=== PATIENT | female | born 1930 | race Caucasian/White ===

== ENCOUNTER → 2016-05-27 | Outpatient (CLI) | payer MEDICARE, OTHER ==
[~2016-05-27] MED LIST: ALBUTEROL2.5 MG/0.5 INH; ALBUTEROL2.5 MG/31 INH; ARTIFICIAL TEA1 EACH OPHTH; ARTIFICIAL TEAR15 ML OPHTH; ASPERCREME90 GM/TUBE TOP; ASPIRIN EC325 MG PO; ATIVAN 0.5MG0.5 MG PO; BREO ELLIPTA 11 EACH INH; BUTRANS1 EAC1 TOP; CALCIUM WITH V1 EAC1 PO; CALCIUM WITH V1 EAC2 PO; CENTRUM SILVER1 EAC1 PO; CENTRUM SILVER1 TAB PO; CITRACAL950 MG PO; COLACE100 MG PO; COLCHICINE0.6 MG PO; CORDARONE,PACE200 MG PO; COZAAR25 MG PO; DELTASONE20 M1 PO; ECOTRIN325 MG PO; ELOCON45 GM TOP; FISH OIL 1,0001 EACH PO; FISH OIL 1,2001 EAC2 PO; FLONASE 50 MCG/16 GM NOSE; FLORASTOR250 MG PO; FOLIC ACID 40400 MCG PO; GLUCOSAMINE &1 EAC1 PO; GLUCOSAMINE CH1 EAC1 PO; I-CAPS WITH LU1 EACH PO; KEFLEX500 MG PO; KLOR-CON M2020 MEQ PO; LASIX40 MG PO; LINEZOLID600 MG PO; LIPITOR40 MG PO; MAG-OX-400(241400 MG PO; METAMUCIL PACKE1 PKT PO; METOPROLOL TART25 MG PO; MILK OF MA400 MG/5 M PO; MIRALAX17 GM PO; NIFEREX-150) (150 MG PO; NORCO 10-325 T1 EACH PO; OCUVITE SOFTGE1 EACH PO; OXYGEN M-15 INH; PEPCID20 MG PO; PERCOCET 10-321 EACH PO; PHENERGAN WITH15 ML PO; PROBIOTIC DIGE1 EACH PO; PROMETH-CODEIN 65 ML PO; PROTONIX40 MG PO; REGLAN10 MG PO; REQUIP2 MG PO; ROBITUSSIN DM120 ML PO; SLOW-MAG (64 MG1 TAB PO; SPIRONOLACTONE25 MG PO; SYSTANE 0.3-0.1 EACH OPHTH; SYSTANE 0.3-0.440 ML OPHTH; TAZTIA XT120 MG PO; TEARGEN1 BOT OPHTH; TESSALON PERLE100 MG PO; THERA-VITE W/ B1 TAB PO; TYLENOL ARTHRI650 MG PO; TYLENOL EXTRA500 MG PO; TYLENOL325 MG PO; ULTRAM50 MG PO; VALIUM5 MG PO; VITAMIN D-32000 UNIT PO; Z-PAK250 MG PO; ZAROXOLYN2.5 MG PO; ZITHROMAX250 MG PO; ZOFRAN8 M1 PO; ZOFRAN8 MG PO; ZOLOFT50 MG PO; ZYRTEC10 MG PO; [UNRECOGNIZED DRUG - OTHER] PO; [UNRECOGNIZED DRUG - OTHER] PO; [UNRECOGNIZED DRUG - OTHER] PO
[2016-05-27 13:29] LABS: ALBUMIN 3.5 gm/dL (3.5-5.0); ANION GAP 13.4 (10.0-19.0); CREATININE 1.1 mg/dL (0.5-1.1); MAGNESIUM 2.5 mg/dL (1.3-2.6); PHOSPHORUS 3.9 mg/dL (2.5-4.9); POTASSIUM 4.4 mMol/L (3.7-5.1)
== END ==
LOC: LCNC 13:02
PROVIDERS: Internal Medicine Interventional Cardiology
DX: R06.02 Shortness of breath (principal)

== ENCOUNTER → 2016-06-03 | Outpatient (CLI) | payer OTHER, MEDICARE | END | disposition disaster alternative care site (69) | LOC: GRAD 09:09 | DX: R13.19 Other dysphagia (principal) | CPT/HCPCS: G8996; G8997; G8998 ==

== ENCOUNTER → 2016-06-10 | Day surgery (SDC) | payer MEDICARE, OTHER ==
[~2016-06-10] VITALS: Ht 174 cm; Wt 81.8 kg
== END ==
LOC: GPOC 06-06 16:00 → GEND 07:52 → GPOC 08:00
PROC: 0DJ08ZZ Inspection of Upper Intestinal Tract, Via Natural or Artificial Opening Endoscopic (ICD-10-PCS; principal; 2016-06-10)
DX: K21.0 Gastro-esophageal reflux disease with esophagitis (principal); R13.10 Dysphagia, unspecified; R05 Cough; F41.9 Anxiety disorder, unspecified; I15.9 Secondary hypertension, unspecified; E78.5 Hyperlipidemia, unspecified; Z79.82 Long term (current) use of aspirin; Z79.51 Long term (current) use of inhaled steroids; Z79.899 Other long term (current) drug therapy; Z98.890 Other specified postprocedural states
CPT/HCPCS: J2001; J7030

== ENCOUNTER 2016-06-23 09:00 | Observation (INO) | payer MEDICARE, OTHER ==
[~2016-06-23] VITALS: Ht 174 cm; Wt 90.5 kg
--- NOTE | ~2016-06-23 | DS ---
PATIENT'S NAME: JARETT GUZMAN [facility] AGE: 86 Y [address] ROOM: [place] [address] LOCATION: [facility] [place] ADMIT DATE: 06/23/2016 Discharge Summary DISCHARGE DATE: 06/25/2016 FAMILY PHYSICIAN: Analy Ambrocio MD ATTENDING PHYSICIAN: Analy Ambrocio FINAL DIAGNOSES: 1. Cough secondary to asthma, moderate, persistent. 2. History of coronary artery disease, status post coronary artery bypass graft. 3. Allergic rhinitis. 4. CAT scan showing pansinusitis. 5. CAT scan showing bilateral pleural effusions but no obvious pulmonary embolus. 6. Generalized weakness, multifactorial. 7. Anxiety related to health. HOSPITAL COURSE: This elderly patient was admitted to the hospital with persistent cough, knowing that she has had a previous outpatient swallowing study that showed no gross abnormality. Because of persisting cough, I was asked her to be seen by Dr. Pacheco, her manometer technician; and Dr. Andreas Lane, the preparing box tender. Please see their notes and dictation in the chart. The patient had a CAT scan of the head, that showed no tumor or mass or stroke but rather mild pansinusitis not thought to be acute. The patient's CT of the chest showed the above with no evidence of pulmonary embolus or betsy pneumonia, tumor, or mass. The patient was treated with steroids. The patient improved remarkably here in the hospital. Her cough completely resolved basically. Her lab is noted. She is dismissed to home on the date shown 06/25/2016. She is to have diet as tolerated, activity as tolerated. See me in 48 hours in the office and follow up with Dr. Pacheco in a couple of weeks. She goes out on a prednisone taper per Dr. Pacheco. She will see me in the office in 2 days, earlier if problems with shortness of breath, cough, or fever, and she is to use Robitussin DM for cough over-the- counter. PATIENT'S NAME: JARETT GUZMAN [facility] AGE: 86 Y [address] ROOM: [place] [address] LOCATION: [facility] [place] ADMIT DATE: 06/23/2016 Discharge Summary DISCHARGE DATE: 06/25/2016 FAMILY PHYSICIAN: Analy Ambrocio MD ATTENDING PHYSICIAN: Analy Ambrocio ANALY AMBROCIO MD DOUGHNUT ICER MACHINE/modl /[id number] d: 06/26/16 0011 t: 07/05/16 0925, DISCHARGE SUMMARY
--- NOTE | ~2016-06-23 | CON ---
PATIENT'S NAME: GUZMAN [facility] AGE: 86 Y [address] ROOM: [place] [address] LOCATION: [facility] ADMIT DATE: 06/23/2016 Consultation DISCHARGE DATE: 06/25/2016 FAMILY PHYSICIAN: Raymond Ambrocio MD ATTENDING PHYSICIAN: Raymond Ambrocio DATE OF CONSULTATION: 06/24/2016 PULMONARY CRITICAL CARE CONSULTATION. REASON FOR CONSULTATION: Cough/pneumonia. HISTORY OF PRESENTING ILLNESS: This is a patient of Dr. Ambrocio. She is an 86-year-old female with a history of coronary artery disease, paroxysmal atrial fibrillation. Apparently, the patient has been having a cough for the past 3-4 months, she had multiple episodes of cough. In March of 2016, she had what it seemed like a possible pneumonia or upper respiratory tract infection. After that, the patient continued to have a cough, which is persistent, keeping the patient awake at night, the patient has been expectorating kawfsmfmi-fe-spymltmj sputum, but has most recently became a dry cough, the patient denied any pleurisy, chest pain, hemoptysis, nausea, vomiting, or abdominal pain. Sometimes, she does feel nauseous after her cough, this episode has happened multiple times during the past 3 years mainly after an upper respiratory tract infection, the patient denied any nausea, vomiting, or abdominal pain. Her cough is persistent mainly during the day, at night, it gets worse especially around refrigerator repairman, the patient's cough is described as hacking. PAST MEDICAL HISTORY: Includes: 1. Paroxysmal atrial fibrillation. 2. Essential hypertension. 3. Coronary artery disease. 4. History of pleural effusion, status post [place] drain. 5. Diverticulitis. 6. Asthma. 7. Pneumonia. 8. History of non-Q-wave myocardial infarction. 9. History of renal failure at the age of 30, secondary to strep throat. 10. High-risk medications amiodarone. 11. Nocturnal hypoxemia on nighttime O2. PAST SURGICAL HISTORY: PATIENT'S NAME: [facility] AGE: 86 Y [address] ROOM: [place] [address] LOCATION: [facility] ADMIT DATE: 06/23/2016 Consultation DISCHARGE DATE: 06/25/2016 FAMILY PHYSICIAN: Raymond Ambrocio MD ATTENDING PHYSICIAN: Raymond Ambrocio Includes: 1. Tonsillectomy and adenoidectomy in 1944. 2. Hysterectomy in 1981. 3. Left heart catheterization showing 3 vessel 07/01/2015, she had a coronary artery bypass grafting with DODGE to LAD, SVG to diagonal, SVG to OM, 07/03/2015. 4. Multiple bilateral thoracentesis. ALLERGIES: INCLUDES CLINDAMYCIN CAUSING DIARRHEA. CURRENT MEDICATIONS: 1. Tylenol 500. 2. Albuterol sulfate. 3. Amiodarone 200 mg. 4. Aspirin. 5. Atorvastatin 40 mg. 6. Flonase 50 mcg 1 puff once b.i.d. 7. Breo-Ellipta. 8. Lasix. 9. Niferex 150 mg b.i.d. 10. Probiotic. 11. Losartan 25 mg b.i.d. 12. Reglan 10 mg b.i.d. 13. Metronidazole. 14. MiraLAX. 15. Klor-Con. 16. Systane eyedrops 1-2 drops p.r.n. 17. Requip 2 mg tablet every night. 18. Florastor 250 mg capsule b.i.d. 19. Zoloft. 20. Tri-Comfort. 21. Aspercreme. 22. Solu-Medrol 60 mg. SOCIAL HISTORY: Lifelong nonsmoker. She lives at home. No history of alcohol or illicit drug abuse. REVIEW OF SYSTEMS: A 10-point review of system was done and otherwise negative other than mentioned in history of presenting illness. PHYSICAL EXAMINATION: GENERAL: The patient is sitting in chair, comfortable, does not appear in PATIENT'S NAME: JARETT GUZMAN [facility] AGE: 86 Y [address] ROOM: [place] [address] LOCATION: [facility] [place] ADMIT DATE: 06/23/2016 Consultation DISCHARGE DATE: 06/25/2016 FAMILY PHYSICIAN: Raymond Ambrocio MD ATTENDING PHYSICIAN: Raymond Ambrocio acute distress. VITAL SIGNS: Include blood pressure is 138/76, heart rate of 67, temperature 97.5, and her weight is 85.5 kg. HEENT: Eyes are nonicteric. Pupils are equal and reactive to light. HEENT: Normocephalic, atraumatic. Wet mucous membranes. Mallampati score is 4. NECK: Supple. No lymphadenopathy. No jugular venous distention. LUNGS: Good bilateral air entry. There is bilateral end-expiratory wheezing. HEART: S1, S2. No murmurs, rubs, or gallops. ABDOMEN: Soft, nontender, no palpable organs. LABORATORY DATA: At the time of admission, her hemoglobin was 10.7, white count was 4.8, platelets 207, BUN is 21, creatinine 1.1. Sodium is 145, potassium is 3.9, TSH is 0.87, with a T4 of 14. Her telemetry is showing sinus rhythm. IMPRESSION: Cough, persistent, chronic in nature. 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 PLAN: 1. At the current point, interventions would include intravenous steroids in the form of Solu-Medrol. 2. I would proceed with DuoNeb q.4 h. and albuterol q.2. 3. Aggressive pulmonary toilet with incentive spirometer. 4. Early ambulation. 5. I would remove her lisinopril a.k.a. VERONICA inhibitor. 6. If the patient does not need to be on amiodarone, I would suggest stopping the amiodarone, and we will defer to Cardiology. 7. We will follow up. Thank you for allowing me to participate in care of this patient. MD ROMERO SIMMS/lindsey /[id number] d: 07/06/16 0016 t: 07/24/16 1552, CONSULTATION REPORT
--- NOTE | ~2016-06-23 | CON ---
PATIENT'S NAME: JARETT GUZMAN [facility] AGE: 86 Y [address] ROOM: [id number] [place], [place] [address] LOCATION: [facility] ADMIT DATE: 06/23/2016 Consultation DISCHARGE DATE: FAMILY PHYSICIAN: ANALY AMBROCIO MD ATTENDING PHYSICIAN: ANALY AMBROCIO DATE OF CONSULTATION: 06/24/2016 REFERRING PHYSICIAN: Analy Ambrocio MD REASON FOR CONSULTATION: Chest pain. HISTORY OF PRESENT ILLNESS: This is an 86-year-old female well known to Dr. Lane with a history of coronary artery disease and post CABG last year. She also carries a history of paroxysmal atrial fibrillation and has been on amiodarone and aspirin therapy. She has hypertension and over the past several months, she has had problems with a chronic cough. She was admitted for possible pneumonia. When discussing her symptoms, she denies any exertional chest pain. Although, she did have some shoulder and neck discomfort, described as a tightness on Thursday that occurred while she was sitting. She states she was not under any anxiety situations, but did have that discomfort for short period. She has not had any problems with exertional chest pain. She denies any shortness of breath, orthopnea, or PND. No problems with increased peripheral edema. Her [place] drain has been discontinued and she has not had any problems since then. She denies any presyncope or syncopal episodes, and once in a while, she will feel a little palpitation but not often. Yesterday, she went into see her primary care physician and was complaining of a constant cough that kept her awake and she was very fatigued. She was admitted to the hospital to rule out pneumonia. She underwent a CT of the chest and sinuses. 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 PAST MEDICAL HISTORY: 1. Paroxysmal atrial fibrillation. 2. Essential hypertension. 3. Coronary artery disease, post CABG. 4. History of pleural effusions with a Edilberto drain. 5. Diverticulitis. 6. Asthma as a child. 7. Pneumonia. 8. History of non-Q-wave myocardial infarction 07/03/2015. 9. History of renal failure at the age of 30 secondary to strep throat. 10. High-risk medications in the form of amiodarone. 11. Nocturnal hypoxemia on O2 2 L at h.s. PATIENT'S NAME: JARETT GUZMAN [facility] AGE: 86 Y [address] ROOM: [address] [place] [id number] LOCATION: [facility] ADMIT DATE: 06/23/2016 Consultation DISCHARGE DATE: FAMILY PHYSICIAN: ANALY AMBROCIO MD ATTENDING PHYSICIAN: ANALY AMBROCIO PAST SURGICAL HISTORY: 1. Tonsillectomy and adenoidectomy in 1944. 2. Hysterectomy in 1981. 3. Left heart catheterization showing three-vessel disease, 07/01/2015. 4. CABG, DODGE to the LAD, SVG to the diagonal, SVG to the OM, 07/03/2015. 5. Multiple bilateral thoracentesis. ALLERGIES: CLINDAMYCIN CAUSING DIARRHEA. CURRENT MEDICATIONS: 1. Extra-Strength Tylenol 500 mg every 4 hours p.r.n. pain. 2. Albuterol sulfate one vial every 4 hours for shortness of breath. 3. Amiodarone 200 mg every day. 4. Aspirin 325 mg every day. 5. Atorvastatin 40 mg every day. 6. Tessalon Perles 100 mg t.i.d. 7. Artificial tears one drop b.i.d. 8. Flonase 50 mcg one puff to the nose b.i.d. 9. Breo Ellipta 100/25 mcg one puff every day. 10. Lasix 40 mg every day. 11. Niferex-150 p.o. b.i.d. 12. Probiotic digestive one capsule every day. 13. Losartan 25 mg b.i.d. 14. Reglan 10 mg q.i.d. 15. Metolazone 2.5 mg every a.m. 16. Thera vitamin 1 tablet p.o. daily. 17. MiraLAX 17 g every 24 hours. 18. Klor-Con 20 mEq every day. 19. Prometh-codeine 6.25-10, 5 to 10 mL every 4 hours p.r.n. cough. 20. Systane eye drops 1-2 drops p.r.n. 21. Requip 2 mg tablet every h.s. 22. Florastor 250 mg capsule b.i.d. 23. Zoloft 50 mg every day. 24. TriComfort supplement one p.o. every day. 25. Aspercreme 10% one application topically p.r.n. 26. Solu-Medrol 60 mg IV every 6 hours. 27. K-Tab 10 mEq, she takes 20 mEq daily. 28. Lipitor 40 mg every day. 29. Zaroxolyn 2.5 mg p.o. every a.m. FAMILY HISTORY: Father at age 74 from an MD. Mother is at age 75, she of heart failure. Two siblings and a sister with metastatic colon cancer. PATIENT'S NAME: JARETT GUZMAN [facility] AGE: 86 Y [address] ROOM: [place] [address] LOCATION: [facility] ADMIT DATE: 06/23/2016 Consultation DISCHARGE DATE: FAMILY PHYSICIAN: ANALY AMBROCIO MD ATTENDING PHYSICIAN: ANALY AMBROCIO Brother who had CABG at an older age. SOCIAL HISTORY: Lifelong nonsmoker. She is living at home, soon to move to an assisted living. REVIEW OF SYSTEMS: GENERAL: She has been very tired and fatigued. She complains of chronic cough that keeps her awake. HEAD: No history of headache. Now, she has chronic fullness in her face. EYES: She wears corrective lenses. EARS: No problems with hearing. NOSE: No epistaxis. She does complain of drainage in the back of her throat. MOUTH: No gingival bleeding. PULMONARY: She denies any hemoptysis. No new shortness of breath. GASTROINTESTINAL: Negative for nausea, vomiting, or diarrhea. No melena or hematochezia. GENITOURINARY: Negative for urinary frequency or urgency. MUSCULOSKELETAL: She is complaining of mild back discomfort after compression fractures have been noted. PHYSICAL EXAM: VITAL SIGNS: Blood pressure is 138/76, heart rate 67, temperature is 97.5, her weight is 85.5 kg. GENERAL: She is alert and oriented. Answers questions appropriately. SKIN: Warm, dry, and pink. HEENT: Pupils equal, round, and react briskly. NECK: Soft and supple. There is no lymphadenopathy. No thyromegaly. CV: Regular with a bit of an irregularity to it. ABDOMEN: Soft. Bowel sounds are present. EXTREMITIES: Showed no peripheral edema. No clubbing and no cyanosis. LABORATORY DATA: Hemoglobin is 10.7, white count 4.8, platelets 207, BUN is 21, creatinine 1.1. Sodium 145, potassium is 3.9, TSH is 0.87 with a T4 of 14. Her telemetry is showing sinus rhythm with short bursts of atrial fibrillation. ASSESSMENT: 1. Atypical chest pain. We will not stress her at this time. We will continue to monitor. 2. Paroxysmal atrial fibrillation. We will continue telemetry, amiodarone, and aspirin. We may need further treatment with long-term anticoagulation. The assessment and plan, history of present illness, and physical exam are per PATIENT'S NAME: JARETT GUZMAN [facility] AGE: 86 Y [address] ROOM: [address] [address] LOCATION: [facility] ADMIT DATE: 06/23/2016 Consultation DISCHARGE DATE: FAMILY PHYSICIAN: ANALY AMBROCIO MD ATTENDING PHYSICIAN: ANALY AMBROCIO Dr.. We would like to thank Dr. Ambrocio for allowing us to participate in patient's care. YANI LAMB APRN FOR MD ROSA ISELA CAMARILLOP/ovidiol /[id number] d: 06/24/16 1619 t: 07/15/16 0807, CONSULTATION REPORT
[~2016-06-23 09:00] MED LIST changes: -ARTIFICIAL TEAR15 ML OPHTH; -BUTRANS1 EAC1 TOP; -CITRACAL950 MG PO; -DELTASONE20 M1 PO; -FISH OIL 1,0001 EACH PO; -I-CAPS WITH LU1 EACH PO; -MILK OF MA400 MG/5 M PO; -PERCOCET 10-321 EACH PO; -PROTONIX40 MG PO; -REGLAN10 MG PO; -ROBITUSSIN DM120 ML PO; -SLOW-MAG (64 MG1 TAB PO; -SPIRONOLACTONE25 MG PO; -SYSTANE 0.3-0.1 EACH OPHTH; -TESSALON PERLE100 MG PO; -VALIUM5 MG PO; -ZAROXOLYN2.5 MG PO; -ZOFRAN8 MG PO; -[UNRECOGNIZED DRUG - OTHER] PO
[2016-06-23] MEDS ORDERED: LIPITOR40 MG PO (10:26)
[2016-06-23] MEDS ORDERED: ASPERCREME90 GM/TUBE TOP (10:27)
[2016-06-23] MEDS ORDERED: TESSALON PERLE100 MG PO (10:28)
[2016-06-23] MEDS ORDERED: ZAROXOLYN2.5 MG PO (10:29)
[2016-06-23] MEDS ORDERED: REGLAN10 MG PO (10:29)
--- NOTE | 2016-06-23 10:34 | NUR ---
86 Y/O FEMALE ADMITTED FOR PNEUMONIA. C/O SOB, COUGHING, NOT FEELING WELL. ALLERGIES - CLINDAMYCIN=DIARRHEA, XARELTO=HEMATURIA MEDICAL & SURGICAL HISTORY - PLEASE SEE ADMISSION ASSESMENT FOR ENTIRE HISTORY. REPORT GIVEN TO PT PRIMARY CARE NURSE MARIA ELENA REYES PT ALREADY KNOWLEDGED ON ADM EDUCATION SHE WAS JUST HERE IN MARCH 2016
[2016-06-23 14:55] LABS: BASOPHIL # 0.1 K/uL (0.0-0.2); EOSINOPHIL # 0.3 K/uL (0.0-0.5); EOSINOPHIL % 5.4 %; HEMOGLOBIN 10.7 g/dL (10.0-15.0); IMMATURE GRANULOCYTE % 0.2 %; LYMPHOCYTE # 0.9 K/uL (0.8-4.0); LYMPHOCYTE % 19.2 %; MCH 30.9 pg (27.0-34.0); MCHC 31.5 gm/dL (32.0-36.5); MCV 98.3 fl (83.0-98.0); MONOCYTE # 0.4 K/uL (0.0-1.0); MONOCYTE % 8.9 %; NEUTROPHIL # (ANC) 3.2 K/uL (1.8-7.8); NEUTROPHIL % 65.3 %; NRBC % 0 /100WBC (0-0.00); PLATELET COUNT 207 K/uL (150-450); RBC 3.46 M/uL (3.00-5.00); RDW-CV 14.6 % (11.9-14.6); WBC 4.8 K/uL (4.0-11.0)
[2016-06-23 15:18] LABS: ALBUMIN 3.2 gm/dL (3.5-5.0); ANION GAP 11.9 (10.0-19.0); CALCIUM 7.9 mg/dL (8.5-10.5); CREATININE 1.1 mg/dL (0.5-1.1); POTASSIUM 3.9 mMol/L (3.7-5.1); TOTAL BILIRUBIN 0.4 mg/dL (0.0-1.5)
--- NOTE | 2016-06-23 17:36 | NUR ---
Significant Event: Patient admitted to the room at [address] Ambrocio office. Patient is alert and oriented. Up to the bathroom with assist and use of a walker to void. Patient has a productive cough of thick, clear phelgm. Phenergan with codeine 10 ml given at 1733 for c/o cough. CT scan of chest done this afternoon. Telemetry on with no calls received. Saline lock to her R) hand. Dr Lane (cardio) to consult and ordered patient to be NPO after midnight. Follow up:
--- NOTE | 2016-06-24 04:04 | NUR ---
Significant Event: A/O X 3. UP TO BR, GAITBELT AND WALKER VOIDED X4. NO BM. NPO AFTER MIDNOC. HAS PRODUCTIVE COUGH THICK MUCOUS. ON TELEMETRY NO CALL THIS SHIFT. SAT UP IN RECLINER CHAIR FOR MEAL. TOLERATES ACTIVITY. LITTLE SOB NOTED. Follow up:
--- NOTE | 2016-06-24 12:33 | NUR ---
Met with patient this morning. Introduced myself and explained my role with the CM department. Patient lives at [facility] in [facility]isted [facility]. She states she gets her meals in the cafeteria. Staff does light cleaning for her. They also were setting up her meds, but then she decided this was too expensive so she is doing her own meds. Her daughter lives in [place]. Her two sons live in [place] and [facility]. She has good family support. She had home health care up until June 13 as she had pleurex drains and they were coming in every 2-3 days to drain the fluid. One drain was removed 2 months ago and the other drain was removed just over one week ago. She has a shower bench, regular walker, and front wheeled walker with seat and brakes that she uses at home. Her plan is to return to her apartment at [place] when she discharges. Will continue to follow and offer supports as needed.
--- NOTE | 2016-06-24 15:53 | NUR ---
Significant Event: Pt denies pain. Up to chair and br with 1 assist. Regular diet resumed. Tele called around 0855 stating pt in afib and HR low 100's. Pt asymptomatic and pt states Dr. Mayer was aware she was in AFIB yesterday at the clinic so did not notify MD. Tele called again around 0940 and pt back in sinus rythym. Mild cough noted occasionally. Follow up:
--- NOTE | 2016-06-25 04:06 | NUR ---
Significant Event: Pt is alert and oriented. VSS on RA. IV to the L)hand SL. TELE with one call around 0017 pt in Afib with rates in the 70s-80s, Pt back in normal sinus rhythm at 0048. Pt ambulates 1 assist/gaitbelt/walker. Lung sounds clear throughout shift. Does have a productive cough. Tolerating diet. Follow Up: Continue to monitor.
--- NOTE | 2016-06-25 11:22 | NUR ---
Met with patient this morning. Possible discharge to home today, if not will likely discharge to home tomorrow. Daughter is off work today and will be able to transport patient back to [facility]. 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 She voices no concerns with discharge.
[2016-06-25] MEDS ORDERED: DELTASONE20 M1 PO (15:20)
[2016-06-25] MEDS ORDERED: ASPERCREME90 GM/TUBE TOP (15:22)
[2016-06-25] MEDS ORDERED: REGLAN10 MG PO (15:22)
[2016-06-25] MEDS ORDERED: ZAROXOLYN2.5 MG PO (15:22)
[2016-06-25] MEDS ORDERED: ROBITUSSIN DM120 ML PO (15:36)
--- NOTE | 2016-06-25 16:35 | NUR ---
D: Orders received for the patient to be discharged to [facility] today. I: Dismissal instructions were prepared and reviewed with the patient and her daughter at the bedside. The following information was discussed including [employer] teaching sheets provided: When you have pneumonia, Robitussin DM, Prednisone and Preventing DVT. Reviewed follow up appointments with Dr. Ambrocio, Dr. Pacheco and Dr. Lane. Reviewed new prescriptions with the patient and her daughter. R: The patient and her daughter both verbalized understanding of the dismissal education at the time of teaching with no further questions. P: The above information was shared with the primary nurse, charge nurse and nurses aide that the patient dismissal education was completed the patient is ready for discharge when appropriate. Daughter will transport her back to [facility] today. The patient will be transported via wheel chair to the front door by nursing staff when ready.
== END 2016-06-25 16:50 | disposition disaster alternative care site (69) ==
LOC: EDSTATUS 09:00 → GMSU 09:10
PROVIDERS: ADMIT Family Medicine
DX: J45.40 Moderate persistent asthma, uncomplicated (principal); I25.10 Atherosclerotic heart disease of native coronary artery without angina pectoris; R07.89 Other chest pain; E78.5 Hyperlipidemia, unspecified; J32.4 Chronic pansinusitis; J90 Pleural effusion, not elsewhere classified; R53.1 Weakness; G25.81 Restless legs syndrome; I48.0 Paroxysmal atrial fibrillation; I25.2 Old myocardial infarction; F41.9 Anxiety disorder, unspecified; Z79.899 Other long term (current) drug therapy; Z95.1 Presence of aortocoronary bypass graft; Z98.890 Other specified postprocedural states
CPT/HCPCS: G0378; G0379; J1650; J2920

== ENCOUNTER → 2016-10-08 | Outpatient (CLI) | payer MEDICARE, OTHER ==
[~2016-10-08] MED LIST changes: +ARTIFICIAL TEAR15 ML OPHTH; +BUTRANS1 EAC1 TOP; +CITRACAL950 MG PO; +DELTASONE20 M1 PO; +FISH OIL 1,0001 EACH PO; +I-CAPS WITH LU1 EACH PO; +MILK OF MA400 MG/5 M PO; +PERCOCET 10-321 EACH PO; +PROTONIX40 MG PO; +REGLAN10 MG PO; +ROBITUSSIN DM120 ML PO; +SLOW-MAG (64 MG1 TAB PO; +SPIRONOLACTONE25 MG PO; +SYSTANE 0.3-0.1 EACH OPHTH; +TESSALON PERLE100 MG PO; +VALIUM5 MG PO; +ZAROXOLYN2.5 MG PO; +ZOFRAN8 MG PO; +[UNRECOGNIZED DRUG - OTHER] PO
== END | disposition disaster alternative care site (69) ==
LOC: GRAD 12:56
DX: M54.9 Dorsalgia, unspecified (principal); N20.0 Calculus of kidney; K57.30 Diverticulosis of large intestine without perforation or abscess without bleeding; I70.90 Unspecified atherosclerosis; M41.9 Scoliosis, unspecified; M47.896 Other spondylosis, lumbar region; M43.8X4 Other specified deforming dorsopathies, thoracic region

== ENCOUNTER 2016-10-09 23:41 | Emergency (ER) | payer MEDICARE, OTHER ==
--- NOTE | ~2016-10-09 | ER ---
PATIENT'S NAME: JARETT GUZMAN [facility] AGE: 86 Y [address] ROOM: [place] [address] LOCATION: [facility] ADMIT DATE: 10/09/2016 ER/Outpatient Report DISCHARGE DATE: 10/10/2016 FAMILY PHYSICIAN: Physician, Unknown ATTENDING PHYSICIAN: Harsha Stahl CHIEF COMPLAINT: Back pain. HISTORY OF PRESENT ILLNESS: The patient arrives by ambulance from [facility] for evaluation of back pain. She got 100 mg of fentanyl en route and states she has no symptoms currently. Symptoms of back pain have been present for 1 week. She denies any bowel, bladder dysfunction, or any incontinence or retention of stool. She states that these symptoms have been worse recently. She has been taking Extra Strength Tylenol and following with Dr. Ambrocio, her primary care provider for this. Tonight, she had to use the restroom, was trying to get up, both having so much pain, she was not sure how she would be able to accomplish that, and thus she called the ambulance. She denies any recent falls or other trauma. The patient did have a CT scan yesterday, which was unremarkable. No other acute issues. PAST MEDICAL HISTORY: Documented on the record and reviewed by me. SOCIAL HISTORY: Documented on the record and reviewed by me. MEDICATIONS: Documented on the record and reviewed by me. ALLERGIES: DOCUMENTED ON THE RECORD AND REVIEWED BY ME. REVIEW OF SYSTEMS: All systems reviewed and negative except as noted in the HPI. PHYSICAL EXAMINATION: VITAL SIGNS: Blood pressure 185/79, pulse 62, respiratory rate 18, temp 97.7, and SpO2 is 92% on room air. Pain is rated at 1/10 to 2/10. GENERAL: An age-appropriate female, elderly, in no obvious pain or distress, recumbent on exam table. NEUROLOGIC: Awake and alert. GCS is 14. Opens eyes to command. Strength is symmetric in all extremities. No focal deficits. HEENT: Normocephalic, atraumatic. Eyes are PERRL. Oropharynx clear. PATIENT'S NAME: JARETT GUZMAN [facility] AGE: 86 Y [address] ROOM: [place], [place] [address] LOCATION: [facility] ADMIT DATE: 10/09/2016 ER/Outpatient Report DISCHARGE DATE: 10/10/2016 FAMILY PHYSICIAN: Physician, Unknown ATTENDING PHYSICIAN: Harsha Stahl NECK: Supple. Trachea is midline. CHEST: Heart is regular rate and rhythm with no murmurs. LUNGS: Clear to auscultation bilaterally with no rhonchi, wheezes, or rales. ABDOMEN: Soft, nontender, and nondistended. No rebound or guarding. BACK: Normal to inspection and palpation. No focal spinal or paraspinal tenderness. No CVA tenderness. EXTREMITIES: Warm and well-perfused. Some edema of the bilateral lower extremities. SKIN: Appears to be grossly intact. No obvious rashes or breakdown. LABS AND X-RAYS: No imaging was obtained for this patient encounter. Labs: CMS with no electrolyte abnormalities. Creatinine 1.2, GFR is 41 at baseline. LFTs grossly unremarkable. Amylase, lipase are unremarkable. Urinalysis 25 leukocytes, 10 blood, micro with 0 to 2 wbcs, rare rbcs, 2 to 5 epithelials, and no bacteria. Lactate is not elevated. CBC with no abnormalities of white count, hemoglobin, or platelets, and platelets are relatively low at 151. IMPRESSION: Acute exacerbation of subacute back pain without neurologic findings. EMERGENCY DEPARTMENT COURSE: The patient was seen evaluated as above. She had no symptoms in the ER. She was able to stand and transfer to commode with minimal help per RN. The pain was adequately controlled. Based on recent evaluation and labs that are unremarkable, I discussed case with patient's primary care provider, Dr. Ambrocio, and he is amenable to treating the patient with tramadol and having follow up in the morning. The patient is amenable as well. We were able to arrange transport back to her facility at [facility] and a prescription for tramadol was given. All questions were answered. The patient was discharged back to [facility] in good condition. MD GRACIA RANGEL/lindsey /[id number] d: 10/10/16 0540 t: 10/14/16 1225, OUTPATIENT REPORT
[~2016-10-09 23:41] MED LIST changes: -ARTIFICIAL TEAR15 ML OPHTH; -BUTRANS1 EAC1 TOP; -CITRACAL950 MG PO; -FISH OIL 1,0001 EACH PO; -I-CAPS WITH LU1 EACH PO; -MILK OF MA400 MG/5 M PO; -PERCOCET 10-321 EACH PO; -PROTONIX40 MG PO; -SLOW-MAG (64 MG1 TAB PO; -SPIRONOLACTONE25 MG PO; -SYSTANE 0.3-0.1 EACH OPHTH; -VALIUM5 MG PO; -ZOFRAN8 MG PO; -[UNRECOGNIZED DRUG - OTHER] PO
[2016-10-10 00:20] LABS: BASOPHIL % 0.5 %; EOSINOPHIL # 0.3 K/uL (0.0-0.5); HEMATOCRIT 36.8 % (30.0-46.0); HEMOGLOBIN 11.8 g/dL (10.0-15.0); IMMATURE GRANULOCYTE % 0.4 %; LYMPHOCYTE # 1.4 K/uL (0.8-4.0); MCH 31.6 pg (27.0-34.0); MCHC 32.1 gm/dL (32.0-36.5); MCV 98.7 fl (83.0-98.0); MONOCYTE # 0.7 K/uL (0.0-1.0); MONOCYTE % 8.6 %; MPV 10.4 fl (9.4-12.4); NEUTROPHIL # (ANC) 5.8 K/uL (1.8-7.8); NEUTROPHIL % 69.5 %; NRBC % 0 /100WBC (0-0.00); RBC 3.73 M/uL (3.00-5.00); RDW-CV 14.7 % (11.9-14.6); WBC 8.3 K/uL (4.0-11.0)
[2016-10-10 00:23] LABS: PLATELET COUNT 151 K/uL (150-450)
[2016-10-10 00:30] LABS: BILIRUBIN URINE NEGATIVE (NEGATIVE); BLOOD URINE 10 /UL (NEGATIVE); COLOR URINE YELLOW (YELLOW); GLUCOSE URINE NEGATIVE (NEGATIVE); KETONE URINE NEGATIVE (NEGATIVE); LEUKOCYTES URINE 25 /UL (NEGATIVE); NITRITE URINE NEGATIVE (NEGATIVE); PROTEIN URINE NEGATIVE (NEGATIVE); SPEC GRAVITY URINE 1.005 (1.003-1.035); TURBIDITY URINE CLEAR (CLEAR); UROBILINOGEN URINE NORMAL (NORMAL)
[2016-10-10 00:41] LABS: BACTERIA URINE NEGATIVE (NEGATIVE); RBC URINE RARE #/HPF (NEGATIVE); WBC URINE 0-2 #/HPF (NEGATIVE)
[2016-10-10 00:45] LABS: ALBUMIN 3.1 gm/dL (3.5-5.0); ANION GAP 12.2 (10.0-19.0); CALCIUM 7.6 mg/dL (8.5-10.5); CREATININE 1.2 mg/dL (0.5-1.1); POTASSIUM 4.2 mMol/L (3.7-5.1); TOTAL PROTEIN 5.6 g/dL (6.0-8.4)
[2016-10-10 00:46] LABS: TOTAL BILIRUBIN 0.6 mg/dL (0.0-1.5)
== END 2016-10-10 01:09 | disposition disaster alternative care site (69) ==
LOC: GMED 23:41
PROVIDERS: Emergency Medicine
DX: M54.9 Dorsalgia, unspecified (principal); I10 Essential (primary) hypertension; F41.9 Anxiety disorder, unspecified; F32.9 Major depressive disorder, single episode, unspecified; I48.91 Unspecified atrial fibrillation; Z88.1 Allergy status to other antibiotic agents

== ENCOUNTER → 2016-10-09 | Outpatient (CLI) | payer MEDICARE, OTHER | END | disposition disaster alternative care site (69) | LOC: GAMB 23:13 | DX: M54.9 Dorsalgia, unspecified (principal) | CPT/HCPCS: A0425; A0427; J3010 ==

== ENCOUNTER → 2016-10-10 | Outpatient (CLI) | payer MEDICARE, OTHER ==
[~2016-10-10] MED LIST changes: +ARTIFICIAL TEAR15 ML OPHTH; +BUTRANS1 EAC1 TOP; +CITRACAL950 MG PO; +FISH OIL 1,0001 EACH PO; +I-CAPS WITH LU1 EACH PO; +MILK OF MA400 MG/5 M PO; +PERCOCET 10-321 EACH PO; +PROTONIX40 MG PO; +SLOW-MAG (64 MG1 TAB PO; +SPIRONOLACTONE25 MG PO; +SYSTANE 0.3-0.1 EACH OPHTH; +VALIUM5 MG PO; +ZOFRAN8 MG PO; +[UNRECOGNIZED DRUG - OTHER] PO
== END | disposition disaster alternative care site (69) ==
LOC: GAMB 01:09
DX: M54.9 Dorsalgia, unspecified (principal)
CPT/HCPCS: A0425; A0428

== ENCOUNTER → 2016-10-15 | Outpatient (CLI) | payer MEDICARE, OTHER | END | disposition disaster alternative care site (69) | LOC: GRAD 15:22 | DX: M54.30 Sciatica, unspecified side (principal); M48.56XD Collapsed vertebra, not elsewhere classified, lumbar region, subsequent encounter for fracture with routine healing; M47.896 Other spondylosis, lumbar region; M48.06 Spinal stenosis, lumbar region ==

== ENCOUNTER 2016-10-18 08:25 | Emergency (ER) | payer MEDICARE, OTHER ==
--- NOTE | ~2016-10-18 | ER ---
PATIENT'S NAME: JARETT GUZMAN [facility] AGE: 86 Y [address] ROOM: [place] [address] LOCATION: [facility] ADMIT DATE: 10/18/2016 ER/Outpatient Report DISCHARGE DATE: 10/18/2016 FAMILY PHYSICIAN: Raymond Ambrocio MD ATTENDING PHYSICIAN: Richelle Figueroa Time of Arrival: 0825 hours. Time of Evaluation: 0855 hours. IDENTIFICATION: An 86-year-old female. CHIEF COMPLAINT: Low back pain. HISTORY OF PRESENT ILLNESS: The patient said at 2:30 she got up and voided, at 6:30 she was unable to void, but then she did go a small amount after that. She has had increased lower extremity edema since last evening, and she has had back pain since the first part of September. She had a letter from the visit with Dr. Diop stating that she had no urologic problems that would be causing her back pain. She had a CT scan of the abdomen and pelvis without contrast on October 08 showing chronic compression deformity at T9. She had an MRI of the lumbar spine ordered per Dr. Ambrocio on October 15 showing a subacute L2 compression fracture, mild to moderate; stable degenerative changes at L3-L4, mild-to- moderate; canal stenosis at L4-L5, moderate canal stenosis. She has been on a variety of pain medications; had a rash secondary to fentanyl; has been on Ultram and Three Bridges, and this morning they called Dr. Ambrocio and he advised for her to take both. She did do that, but has continued pain, so presented here to the emergency room. The patient has no numbness or tingling and no weakness. She does use a walker. PAST MEDICAL HISTORY: ALLERGIES: CLINDAMYCIN AND FENTANYL. CURRENT MEDICATIONS: 1. Zaroxolyn 2.5 mg daily before Lasix. 2. Reglan 10 mg before meals and at bedtime. 3. Aspirin 325 mg daily. 4. TriComfort Essentials. 5. Artificial Tears both eyes. 6. Furosemide 40 mg daily. 7. Amiodarone 200 mg daily. PATIENT'S NAME: JARETT GUZMAN [facility] AGE: 86 Y [address] ROOM: [place] [address] LOCATION: [facility] ADMIT DATE: 10/18/2016 ER/Outpatient Report DISCHARGE DATE: 10/18/2016 FAMILY PHYSICIAN: Raymond Ambrocio MD ATTENDING PHYSICIAN: Richelle Figueroa 8. Multivitamin daily. 9. KCl 20 mEq daily. 10. Sertraline 50 mg daily. 11. Fish oil 1000 mg daily. 12. Probiotic 1 tablet daily. 13. MiraLax 17 g q.a.m. 14. Flonase 1 puff each nostril b.i.d. 15. Ferrex 150 mg b.i.d. 16. Losartan 25 mg b.i.d. 17. Florastor 250 mg b.i.d. 18. Fluticasone nasal spray 1 puff daily. 19. Breo every a.m. 20. Astelin Nasal [place] b.i.d. 21. O2 2 L as needed. 22. Requip 2 mg daily. 23. Tramadol q.4 hours p.r.n. pain. 24. Atorvastatin 40 mg daily. 25. Protonix 40 mg daily. 26. Valium 2 mg q.8 hours p.r.n. 27. Tylenol p.r.n. 28. Aspercreme p.r.n. 29. Promethazine with Codeine p.r.n. 30. Systane eye drops p.r.n. 31. Tessalon Perles p.r.n. 32. Guaifenesin and dextromethorphan liquid p.r.n. 33. Milk of magnesia p.r.n. MEDICAL PROBLEMS: History of asthma, coronary artery disease status post bypass, paroxysmal atrial fibrillation, and pulmonary hypertension. PRIOR SURGERIES: Tonsillectomy, adenoidectomy, hysterectomy, and CABG. FAMILY HISTORY: Father at age 74 of [place]. Mother at age 75 of heart failure. One sibling with metastatic colon cancer. One brother had a CABG. SOCIAL HISTORY: The patient lives at [facility]. Tobacco use, denies. Alcohol use, denies. REVIEW OF SYSTEMS: All systems reviewed and negative other than what is noted in the HPI. The patient has had some constipation, but has been taking her MiraLax. No blood PATIENT'S NAME: JARETT GUZMAN [facility] AGE: 86 Y [address] ROOM: [place] [id number] LOCATION: ED ADMIT DATE: 10/18/2016 ER/Outpatient Report DISCHARGE DATE: 10/18/2016 FAMILY PHYSICIAN: Raymond Ambrocio MD ATTENDING PHYSICIAN: Richelle Figueroa in her stools. No dark, tarry, or black stools. No diarrhea. PHYSICAL EXAMINATION: VITAL SIGNS: 5 feet 8-1/2 inches, weight 91.7 kg. Blood pressure 171/72, pulse 82, respirations 18, temperature 98.3, and saturations 91% on room air. GENERAL: An 86-year-old female, in obvious distress. HEENT: Unremarkable. LUNGS: Clear to auscultation. HEART: Regular rate and rhythm. ABDOMEN: Soft, nondistended, nontender. SKIN: [place], warm, and dry. No lesions or rashes noted. MUSCULOSKELETAL: The patient is tender to palpation in the lumbar spine, more to the left. Negative straight leg raise. NEURO: The patient is alert and oriented x4. Cranial nerves 2 through 12 grossly intact. Motor strength 5/5 throughout. Sensation is intact to light touch. EMERGENCY DEPARTMENT COURSE: An IV was initiated. The patient was given morphine for pain control 2 mg IV, which improved her pain significantly. Chemistry panel is unremarkable. CRP is normal. CBC is unremarkable. Sedimentation rate is mildly elevated at 35. I did discuss the case with Dr. Ambrocio, her primary care physician. IMPRESSION AND PLAN: Lumbar compression fracture, improved with morphine. Continue Three Bridges and Ultram as ordered per Dr. Ambrocio. Up with walker. Ice or heat. No lifting, and follow up with Dr. Ambrocio on Thursday. We did discuss the possibility of referral to a spine surgeon to discuss kyphoplasty and they will discuss that with Dr. Ambrocio at that followup on Thursday. RICHELLE FIGUEROA MD CAR/modl /[id number] d: 10/19/16 1010 t: 10/19/16 1513, OUTPATIENT REPORT
[~2016-10-18 08:25] MED LIST changes: -ARTIFICIAL TEAR15 ML OPHTH; -BUTRANS1 EAC1 TOP; -CITRACAL950 MG PO; -FISH OIL 1,0001 EACH PO; -I-CAPS WITH LU1 EACH PO; -MILK OF MA400 MG/5 M PO; -PERCOCET 10-321 EACH PO; -PROTONIX40 MG PO; -SLOW-MAG (64 MG1 TAB PO; -SPIRONOLACTONE25 MG PO; -SYSTANE 0.3-0.1 EACH OPHTH; -VALIUM5 MG PO; -ZOFRAN8 MG PO; -[UNRECOGNIZED DRUG - OTHER] PO
[2016-10-18 10:11] LABS: BASOPHIL % 0.4 %; EOSINOPHIL # 0.3 K/uL (0.0-0.5); HEMATOCRIT 34.7 % (30.0-46.0); HEMOGLOBIN 11.2 g/dL (10.0-15.0); IMMATURE GRANULOCYTE % 0.3 %; LYMPHOCYTE # 0.8 K/uL (0.8-4.0); LYMPHOCYTE % 11.2 %; MCH 31.6 pg (27.0-34.0); MCHC 32.3 gm/dL (32.0-36.5); MONOCYTE # 0.6 K/uL (0.0-1.0); MONOCYTE % 8.5 %; MPV 10.4 fl (9.4-12.4); NEUTROPHIL # (ANC) 5.1 K/uL (1.8-7.8); NEUTROPHIL % 75.6 %; NRBC % 0 /100WBC (0-0.00); PLATELET COUNT 146 K/uL (150-450); RBC 3.54 M/uL (3.00-5.00); RDW-CV 14.6 % (11.9-14.6); WBC 6.7 K/uL (4.0-11.0)
[2016-10-18 10:26] LABS: BILIRUBIN URINE NEGATIVE (NEGATIVE); BLOOD URINE 10 /UL (NEGATIVE); COLOR URINE YELLOW (YELLOW); GLUCOSE URINE NEGATIVE (NEGATIVE); KETONE URINE NEGATIVE (NEGATIVE); LEUKOCYTES URINE NEGATIVE /UL (NEGATIVE); NITRITE URINE NEGATIVE (NEGATIVE); PROTEIN URINE NEGATIVE (NEGATIVE); SPEC GRAVITY URINE 1.015 (1.003-1.035); TURBIDITY URINE CLEAR (CLEAR); UROBILINOGEN URINE NORMAL (NORMAL)
[2016-10-18 10:26] LABS: ALBUMIN 3.1 gm/dL (3.5-5.0); ANION GAP 12.9 (10.0-19.0); CALCIUM 7.9 mg/dL (8.5-10.5); CREATININE 1.3 mg/dL (0.5-1.1); POTASSIUM 3.9 mMol/L (3.7-5.1); TOTAL PROTEIN 6.1 g/dL (6.0-8.4)
[2016-10-18 10:27] LABS: TOTAL BILIRUBIN 0.4 mg/dL (0.0-1.5)
[2016-10-18 10:37] LABS: BACTERIA URINE NEGATIVE (NEGATIVE); EPITHELIAL URINE 0-2 #/HPF (NEGATIVE); RBC URINE 0-2 #/HPF (NEGATIVE); WBC URINE RARE #/HPF (NEGATIVE)
== END 2016-10-18 11:17 | disposition disaster alternative care site (69) ==
LOC: GMED 08:25
PROVIDERS: Family Medicine
DX: M48.56XA Collapsed vertebra, not elsewhere classified, lumbar region, initial encounter for fracture (principal); J45.909 Unspecified asthma, uncomplicated; I25.10 Atherosclerotic heart disease of native coronary artery without angina pectoris; I48.0 Paroxysmal atrial fibrillation; I27.2 Other secondary pulmonary hypertension; Z90.89 Acquired absence of other organs; Z90.710 Acquired absence of both cervix and uterus; Z95.1 Presence of aortocoronary bypass graft; Z88.1 Allergy status to other antibiotic agents; Z88.5 Allergy status to narcotic agent; Z79.82 Long term (current) use of aspirin; Z79.899 Other long term (current) drug therapy
CPT/HCPCS: J2001; J2270

== ENCOUNTER 2016-10-20 09:15 | Observation (INO) | payer MEDICARE, OTHER ==
[~2016-10-20] VITALS: Ht 172.7 cm; Wt 92.7 kg
--- NOTE | ~2016-10-20 | CON ---
PATIENT'S NAME: JARETT GUZMAN [facility] AGE: 86 Y [address] ROOM: [place] [address] LOCATION: [facility] ADMIT DATE: 10/20/2016 Consultation DISCHARGE DATE: FAMILY PHYSICIAN: ANALY AUGUST MD ATTENDING PHYSICIAN: ANALY AUGUST DATE OF CONSULTATION: 10/20/2016 REFERRING PHYSICIAN: Maximino Estrada MD TIME OF EVALUATION: 11:45 p.m. HISTORY OF PRESENT ILLNESS: Ms. Guzman is an 86-year-old white female who has been living independently in an assisted living, but for the last month has had increasing back pain and is no longer able to care for herself. No pain radiating down the legs. No weakness or numbness. Imaging has shown a subacute fracture of lumbar 2. She also has coexisting degeneration of the low back. Unstable listhesis of 4 on 5 and multilevel stenosis. No cancer or infection. No trauma. No loss of bowel or bladder control. MEDICATIONS: See list. ALLERGIES: TO CLINDAMYCIN AND FENTANYL. PAST MEDICAL HISTORY: Coronary artery disease, asthma, atrial fibrillation, and pulmonary hypertension. SOCIAL HISTORY: Does not smoke or drink. FAMILY MEDICAL HISTORY: Remarkable for coronary artery disease and metastatic colon cancer. PERSONAL/SOCIAL HISTORY: She lives at assisted living at [facility]. PHYSICAL EXAMINATION: GENERAL: White female, moderate distress. NECK: Nontender. HEENT: Hears and sees. LUNGS: Able to take in a deep breath. PATIENT'S NAME: JARETT GUZMAN [facility] AGE: 86 Y [address] ROOM: [place] [address] LOCATION: [facility] ADMIT DATE: 10/20/2016 Consultation DISCHARGE DATE: FAMILY PHYSICIAN: ANALY AUGUST MD ATTENDING PHYSICIAN: ANALY AUGUST HEART: Occasional irregular beat. ABDOMEN: Soft. MUSCULOSKELETAL: Mid lumbar spine is tender. Hips move without pain. Good strength in both lower extremities, moderate edema. INTEGUMENT: Intact. DIAGNOSTICS: MRI is reviewed. It shows superior compression fracture of lumbar 2 that is subacute, multilevel stenosis, listhesis of 4 on 5. ASSESSMENT AND PLAN: Compression fracture contributing to the new pain, certainly the degeneration, unstable listhesis, stenosis, and deconditioning also making the pain more significant with failure to improve and repeat visits to the emergency room. Vertebral body augmentation is relatively indicated. I have discussed with the patient and the daughter. They understand the risks, benefits, and alternatives. They understand the procedure would not make the patient pain free, but would hopefully see 50% improvement. Also, discussed risk of additional fractures in the future. We will plan for vertebral body augmentation after void creation. MAXIMINO ESTRADA MD DPM/lindsey /[id number] d: 10/21/162249 t: 10/25/16 0831, CONSULTATION REPORT
--- NOTE | ~2016-10-20 | CON ---
PATIENT'S NAME: JARETT GUZMAN [facility] AGE: 86 Y [address] ROOM: [id number] [place], [place] [address] LOCATION: [facility] ADMIT DATE: 10/20/2016 Consultation DISCHARGE DATE: 10/23/2016 FAMILY PHYSICIAN: Raymond Ambrocio MD ATTENDING PHYSICIAN: Raymond Ambrocio DATE OF CONSULTATION: 10/20/2016 REFERRING PHYSICIAN: Maximino Estrada MD REASON FOR CONSULT: Low blood pressure. HISTORY OF PRESENT ILLNESS: This is an 86-year-old female who was admitted through the emergency room because she was unable to void. She has been complaining of increased back pain as well. She was evaluated by Dr. Diop and there was no urological problem, but she did have a CT of the abdomen and pelvis without contrast on October 08, which showed chronic compression deformity of T9. An MRI of the lumbar spine ordered by Dr. Ambrocio on the , which showed L2 compression fracture [id number], stable degenerative change of L3-L4 mild-to- moderate, and canal stenosis of L4-L5, moderate. She had been on a variety of pain medications and had a rash secondary to fentanyl. Because of continued pain and poor control of it, she then presented to the emergency room. During this hospitalization, she underwent a kyphoplasty and after the procedure she had lower blood pressures in the 100s/70s. She denies any nausea or vomiting. No lightheadedness or dizziness. She denies shortness of breath. No orthopnea, PND, or pedal edema. On telemetry, her rhythm has shown regular sinus rhythm after her procedure. Her blood pressure now is in the 140s/70s. Currently, her Cozaar and Lasix were held due to her lower blood pressure. PAST MEDICAL HISTORY: 1. Coronary artery disease with non-Q-wave myocardial infarction on 07/01/2015 with CABG, 3-vessel on 07/03/2015. 2. Paroxysmal atrial fibrillation. 3. Bilateral pleural effusion with Brooke drains placed and now discontinued. 4. High-risk medication - amiodarone. 5. Long-term anticoagulation - Xarelto. 6. Essential hypertension. 7. Nocturnal hypoxia on O2 at 2 L at bedtime. 8. Hypercholesterolemia. 9. Pulmonary hypertension. 10. Renal failure at the age of 30 secondary to strep throat. 11. Frequent pneumonias. 12. Diverticulitis. PATIENT'S NAME: JARETT GUZMAN [facility] AGE: 86 Y [address] ROOM: [id number] [place], [place] [address] LOCATION: [facility] ADMIT DATE: 10/20/2016 Consultation DISCHARGE DATE: 10/23/2016 FAMILY PHYSICIAN: Raymond Ambrocio MD ATTENDING PHYSICIAN: Raymond Ambrocio 13. Asthma as a child. 14. Depression. 15. Obesity. 16. Chronic cough. PAST SURGICAL HISTORY: 1. T and A in 1944. 2. Hysterectomy in 1981. 3. Left heart catheterization, 3-vessel, on 07/01/2015. 4. CABG, utilizing DODGE to the LAD; SVG to the diagonal; SVG to the OM on 07/03/2015. 5. Pleural effusion, bilateral thoracentesis and Brooke drains placed by Dr. Rocha on 08/12/2015. 6. Brooke drains removed in 2016. 7. Kyphoplasty on 10/21/2016. ALLERGIES: CLINDAMYCIN. CURRENT MEDICATIONS: 1. Albuterol sulfate every 4 hours p.r.n. 2. Marti 1 tablet every day. 3. Artificial Tears b.i.d. 4. Aspercreme 10% lotion p.r.n. 5. Aspirin 325 mg daily. 6. Atorvastatin 40 mg once a day. 7. Azelastine HCl 1 puff each nostril twice a day. 8. Breo Ellipta 1 puff daily. 9. Centrum Silver 1 tablet daily. 10. Ferrex 150 mg b.i.d. 11. Fish oil 1000 mg once a day. 12. Flonase 50 mcg nasally b.i.d. 13. Florastor 250 mg 1 capsule twice a day. 14. Fluticasone propionate HFA aerosol 1 puff once a day. 15. Guaifenesin DM 100/10, 5 to 10 mL every 4 hours p.r.n. 16. Lactobacillus rhamnosus capsule once a day. 17. Lasix 40 mg once a day. 18. Losartan 25 mg b.i.d. 19. MiraLAX 17 grams once a day. 20. Oxygen 3 L at bedtime. 21. Protonix 40 mg once a day. 22. Potassium extended release 20 mEq once a day. 23. Promethazine and codeine syrup 5 to 10 mL every 4 hours p.r.n. 24. Requip 2 mg at bedtime. 25. Systane eyedrops q.i.d. PATIENT'S NAME: JARETT GUZMAN [facility] AGE: 86 Y [address] ROOM: [place] [address] LOCATION: [facility] ADMIT DATE: 10/20/2016 Consultation DISCHARGE DATE: 10/23/2016 FAMILY PHYSICIAN: Raymond Ambrocio MD ATTENDING PHYSICIAN: Raymond Ambrocio 26. Sertraline 50 mg once a day. 27. Tylenol extra-strength 500 mg 2 tablets as needed every 6 hours. FAMILY HISTORY: Father had a history of myocardial infarction, he at the age of 74. Mother at 75 of heart failure. A sibling sister with metastatic colon cancer. Brother, who had CABG. She has 2 sons and 1 daughter, who are alive and well. SOCIAL HISTORY: She is . Living at [place]. She is a lifelong nonsmoker and does not drink alcohol. REVIEW OF SYSTEMS: GENERAL: She has been very fatigued due to her chronic pain. HEAD: No history of headache. EYES: No blurred vision or double vision. She wears corrective lenses. EARS: No problems with hearing. NOSE: No epistaxis or rhinorrhea. MOUTH: No gingival bleeding. THROAT: Denies sore throat, hoarseness, or difficulty swallowing. PULMONARY: No evidence of hemoptysis or sputum production. She has had problems this year with a chronic cough, which has gotten a little bit better. GI: Negative for nausea, vomiting, or diarrhea. No melena or hematochezia. : She has had recent trouble with urination and has problems with frequent urinary tract infections. ENDOCRINE: No history of hyper or hypothyroidism. NEUROLOGIC: She denies anxiety or numbness or tingling in her lower extremities. DERMATOLOGIC: No hair, skin, or nail changes that are concerning. MUSCULOSKELETAL: She currently has L2 compression fracture post kyphoplasty. PHYSICAL EXAMINATION: VITAL SIGNS: Her blood pressure is 149/70, heart rate is 68, respirations 20, and saturations are 94%. Her weight is 200 pounds, she is 68 inches tall with a BMI of 30. GENERAL: On exam, she is sleepy, but arouses easily. SKIN: Warm, dry, and pink. HEENT: Pupils equal, round, and react briskly. NECK: Soft and supple. No lymphadenopathy. No thyromegaly. JVD is flat. LUNGS: Lung sounds are clear without evidence of wheezes, rales, or rhonchi. CV: Regular with a normal S1 and S2 without murmur, rub, or click. ABDOMEN: Soft. Bowel sounds are present. EXTREMITIES: Showed no peripheral edema. No clubbing. No cyanosis. Distal pulses are 2+/4. PATIENT'S NAME: JARETT GUZMAN [facility] AGE: 86 Y [address] ROOM: [address] [address] LOCATION: [facility] ADMIT DATE: 10/20/2016 Consultation DISCHARGE DATE: 10/23/2016 FAMILY PHYSICIAN: Raymond Ambrocio MD ATTENDING PHYSICIAN: Raymond Ambrocio NEUROLOGIC: She is alert and oriented to person, place, and time. Her gait has not been observed. She is currently on bed rest. DERMATOLOGIC: Her skin is warm, dry, and pink. No rashes are noted. PSYCHIATRIC: Her mood and affect are pleasant. ASSESSMENT: Hypotension. I agree withholding Lasix and Cozaar for now. We did give parameters. Would continue to hold Lasix if her blood pressure is less than 110. We will check a CBC and a renal panel in the morning for further evaluation. We will also check an EKG. The assessment and plan, history of present illness, and physical exam are per Dr. Estrada. Further recommendations will be forthcoming as information becomes available. YANI LAMB APRN FOR AARTI ESTRADA MD TGP/modl /[id number] d: 10/23/163 t: 08/01/17 1011, CONSULTATION REPORT
--- NOTE | ~2016-10-20 | OR ---
PATIENT'S NAME: JARETT GUZMAN [facility] AGE: 86 Y [address] ROOM: [address] [address] LOCATION: [facility] ADMIT DATE: 10/20/2016 OR/Procedure Report DISCHARGE DATE: FAMILY PHYSICIAN: ANALY AUGUST MD ATTENDING PHYSICIAN: ANALY AUGUST SURGEON: Maximino Estrada MD OUTSIDE SALES REPRESENTATIVE INSURANCE: DATE OF PROCEDURE: 10/21/2016 PREOPERATIVE DIAGNOSES: 1. Subacute lumbar 2 compression fracture. 2. Disabling mid lumbar pain. 3. Coexisting lumbar degeneration and stenosis, listhesis, and instability. 4. Osteoporosis. POSTOPERATIVE DIAGNOSES: 1. Subacute lumbar 2 compression fracture. 2. Disabling mid lumbar pain. 3. Coexisting lumbar degeneration and stenosis, listhesis, and instability. 4. Osteoporosis. PROCEDURE PERFORMED: Kyphoplasty of lumbar 2. ANESTHESIA: Local and MAC. INDICATIONS FOR PROCEDURE: Ms. Guzman one-month of new and severe pain in the back, has a subacute lumbar 2 fracture likely contributing to the new pain. The patient and family understand that coexisting degeneration, instability, stenosis, and muscle deconditioning also contribute to the pain and kyphoplasty, will not relieve the pain from no sources, but will relieve the pain from the subacute lumbar 2 fracture. With failure to improve, and multiple visits to the emergency room and no longer able to care for self at home, attempt at kyphoplasty was indicated. Would hope for 50% improvement of pain. The patient and family understands the expected results and possible complications. DESCRIPTION OF PROCEDURE: Ms. Guzman was taken to the operating room, 2 g of Kefzol was given intravenously for prophylaxis, and placed on the Sundeep table in a prone position. Back was prepared with DuraPrep and draped sterilely. Fluoroscope was used to identify the lumbar 2 level, counted up from the sacrum. Confirmed with the known listhesis of 4 and 5. From the right side, local anesthetic was infused subcutaneously about the periosteum, using 20 mL of 0.25% Marcaine. A 5-mm incision was made. The [employer] Kyphon system was used. [employer] needle was advanced through the pedicle into the posterior third of the body. It was drilled. It was carefully tamped. PATIENT'S NAME: JARETT GUZMAN [facility] AGE: 86 Y [address] ROOM: [address] [address] LOCATION: [facility] ADMIT DATE: 10/20/2016 OR/Procedure Report DISCHARGE DATE: FAMILY PHYSICIAN: ANALY AUGUST MD ATTENDING PHYSICIAN: ANALY AUGUST The balloon was placed. It was carefully inflated. No pressure above 120 pounds per sq inch at any time. Using viscoelasty to create a void, the bone was allowed to carefully creep. The balloon burst when doing this even though it was a very low pressure. Contrast was irrigated out, cement was prepared. An 8 mL of cement was carefully infused into the defect under direct fluoroscopic control. The Jamshidi needle and introduction syringe were removed. The incision was closed with a 3-0 nylon simple suture. Band-Aid placed. Procedure was done without complication. The patient was able to move legs with good strength. Was taken to the recovery room in stable condition. We will keep at rest for 3 hours and allow the cement to fully cure and then mobilize. MAXIMINO ESTRADA MD DPM/modl /[id number] d: 10/21/162236 t: 10/25/16 0833, OPERATIVE SUMMARY
--- NOTE | ~2016-10-20 | DS ---
PATIENT'S NAME: JARETT GUZMAN [facility] AGE: 86 Y [address] ROOM: [id number] [place], [place] [address] LOCATION: [facility] ADMIT DATE: 10/20/2016 Discharge Summary DISCHARGE DATE: 10/23/2016 FAMILY PHYSICIAN: Analy August MD ATTENDING PHYSICIAN: Analy August FINAL DIAGNOSES: 1. Low back pain acute on chronic secondary to recent compression fracture of L2. 2. Status post kyphoplasty per Dr. Maximino Lane of L2. 3. Coronary artery disease, stable angina pectoris. 4. Status post coronary artery bypass graft. 5. Hypertension, essential. 6. Generalized osteoarthritis. 7. 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 HOSPITAL COURSE: This pleasant elderly white female, jail patient was admitted to the hospital for persistent low back pain secondary to a compression fracture of L2. Please see copies of her history and physical, progress notes, and consultative notes and dictation from Dr. Maximino Lane. Please see copies of her recent MRI of the spine and intervention per Dr. Lane for kyphoplasty done here during her hospitalization. The patient is at maximal hospital benefit. I think left with a compromised situation that she is going to have ongoing back pain but does not qualify to stay in the hospital, and she will have to continue to have OT, PT, and pain management measures as an outpatient. She is dismissed from the hospital today 10/23/2016 with what I think is a guarded prognosis related to the above. She is to see me back in the office in a week or 2. She goes out on the med list shown. [facility] can [facility] PT and OT. Diet as tolerated, activity as tolerated. Certainly, if she is worse, cannot get around, has unrelenting back pain as she had prior, we will have to see her back earlier. ANALY AUGUST MD FORGE OPERATOR/modl /[id number] d: 10/23/162117 t: 10/29/16 9087, DISCHARGE SUMMARY
[2016-10-20] MEDS ORDERED: ULTRAM50 MG PO (10:16)
[2016-10-20] MEDS ORDERED: NORCO 10-325 T1 EACH PO (10:16)
[2016-10-20] MEDS ORDERED: VALIUM5 MG PO (10:37)
[2016-10-20] MEDS ORDERED: MILK OF MA400 MG/5 M PO (10:47)
[2016-10-20 11:22] LABS: BILIRUBIN URINE NEGATIVE (NEGATIVE); BLOOD URINE 10 /UL (NEGATIVE); COLOR URINE YELLOW (YELLOW); GLUCOSE URINE NEGATIVE (NEGATIVE); KETONE URINE NEGATIVE (NEGATIVE); LEUKOCYTES URINE NEGATIVE /UL (NEGATIVE); NITRITE URINE NEGATIVE (NEGATIVE); PROTEIN URINE NEGATIVE (NEGATIVE); TURBIDITY URINE CLEAR (CLEAR); UROBILINOGEN URINE NORMAL (NORMAL)
[2016-10-20 11:31] LABS: BASOPHIL % 0.4 %; EOSINOPHIL # 0.2 K/uL (0.0-0.5); EOSINOPHIL % 5.3 %; HEMOGLOBIN 10.3 g/dL (10.0-15.0); IMMATURE GRANULOCYTE % 0.4 %; LYMPHOCYTE # 0.8 K/uL (0.8-4.0); LYMPHOCYTE % 17.8 %; MCH 31.5 pg (27.0-34.0); MCHC 32.2 gm/dL (32.0-36.5); MCV 97.9 fl (83.0-98.0); MONOCYTE # 0.5 K/uL (0.0-1.0); MONOCYTE % 11.8 %; MPV 10.3 fl (9.4-12.4); NEUTROPHIL # (ANC) 2.9 K/uL (1.8-7.8); NEUTROPHIL % 64.3 %; NRBC % 0 /100WBC (0-0.00); PLATELET COUNT 158 K/uL (150-450); RBC 3.27 M/uL (3.00-5.00); RDW-CV 14.6 % (11.9-14.6); WBC 4.6 K/uL (4.0-11.0)
[2016-10-20 11:32] LABS: BACTERIA URINE NEGATIVE (NEGATIVE); EPITHELIAL URINE RARE #/HPF (NEGATIVE); RBC URINE RARE #/HPF (NEGATIVE); WBC URINE RARE #/HPF (NEGATIVE)
[2016-10-20 11:53] LABS: ALBUMIN 2.8 gm/dL (3.5-5.0); CALCIUM 7.9 mg/dL (8.5-10.5); CREATININE 1.2 mg/dL (0.5-1.1); TOTAL PROTEIN 5.8 g/dL (6.0-8.4)
[2016-10-20 11:55] LABS: TOTAL BILIRUBIN 0.5 mg/dL (0.0-1.5)
[2016-10-22 05:10] LABS: BASOPHIL % 0.4 %; EOSINOPHIL # 0.2 K/uL (0.0-0.5); HEMATOCRIT 30.1 % (30.0-46.0); HEMOGLOBIN 9.7 g/dL (10.0-15.0); IMMATURE GRANULOCYTE % 0.2 %; LYMPHOCYTE # 0.7 K/uL (0.8-4.0); LYMPHOCYTE % 13.3 %; MCH 32.1 pg (27.0-34.0); MCHC 32.2 gm/dL (32.0-36.5); MCV 99.7 fl (83.0-98.0); MONOCYTE # 0.6 K/uL (0.0-1.0); MONOCYTE % 12.3 %; MPV 10.1 fl (9.4-12.4); NEUTROPHIL # (ANC) 3.5 K/uL (1.8-7.8); NEUTROPHIL % 69.8 %; NRBC % 0 /100WBC (0-0.00); PLATELET COUNT 159 K/uL (150-450); RBC 3.02 M/uL (3.00-5.00); RDW-CV 14.7 % (11.9-14.6)
[2016-10-22 05:30] LABS: ALBUMIN 2.6 gm/dL (3.5-5.0); ANION GAP 7.3 (10.0-19.0); CALCIUM 7.7 mg/dL (8.5-10.5); CREATININE 0.8 mg/dL (0.5-1.1); MAGNESIUM 2.4 mg/dL (1.8-2.6); PHOSPHORUS 2.7 mg/dL (2.5-4.9); POTASSIUM 4.3 mMol/L (3.7-5.1)
== END 2016-10-23 14:47 | disposition disaster alternative care site (69) ==
LOC: G3N 09:15
PROVIDERS: Nurse Practitioner Acute Care; ADMIT Family Medicine
PROC: 0QS03ZZ Reposition Lumbar Vertebra, Percutaneous Approach (ICD-10-PCS; principal; 2016-10-21)
PROC: 0QU03JZ Supplement Lumbar Vertebra with Synthetic Substitute, Percutaneous Approach (ICD-10-PCS; 2016-10-21)
DX: M80.88XA Other osteoporosis with current pathological fracture, vertebra(e), initial encounter for fracture (principal); M48.06 Spinal stenosis, lumbar region; F41.9 Anxiety disorder, unspecified; F32.9 Major depressive disorder, single episode, unspecified; I10 Essential (primary) hypertension; J45.909 Unspecified asthma, uncomplicated; K21.0 Gastro-esophageal reflux disease with esophagitis; I25.2 Old myocardial infarction; I48.0 Paroxysmal atrial fibrillation; M15.9 Polyosteoarthritis, unspecified; E78.00 Pure hypercholesterolemia, unspecified; I27.2 Other secondary pulmonary hypertension; E66.9 Obesity, unspecified; Z98.890 Other specified postprocedural states; Z98.41 Cataract extraction status, right eye; Z98.42 Cataract extraction status, left eye; I25.119 Atherosclerotic heart disease of native coronary artery with unspecified angina pectoris; Z95.1 Presence of aortocoronary bypass graft; Z79.82 Long term (current) use of aspirin; Z79.899 Other long term (current) drug therapy; Z88.8 Allergy status to other drugs, medicaments and biological substances
CPT/HCPCS: G0378; G0379; G8979; G8980; G8987; G8988; G8989; G8996; G8997; J0690; J1170; J1650; J2270; J2405; J3370; J7030

== ENCOUNTER 2016-10-28 09:25 | Emergency (ER) | payer MEDICARE, OTHER ==
--- NOTE | ~2016-10-28 | ER ---
PATIENT'S NAME: JARETT GUZMAN [facility] AGE: 86 Y [address] ROOM: [place] [address] LOCATION: [facility] ADMIT DATE: 10/28/2016 ER/Outpatient Report DISCHARGE DATE: 10/28/2016 FAMILY PHYSICIAN: Raymond Ambrocio MD ATTENDING PHYSICIAN: Harsha Stahl CHIEF COMPLAINT: Back pain and weight gain. HISTORY OF PRESENT ILLNESS: Ms. Guzman arrives by ambulance for evaluation of unusual vital signs and back pain. Of note, she had a kyphoplasty a couple of weeks ago by Dr. Lane. She follows with Dr. Ambrocio for this. She states that she has had no pain control since the onset. Today, they took her vital signs as it is the first of the month, and she was found to have gained a significant amount of weight. She states her clothes are not fitting well. She feels bloated. She does not like how she feels. She is sad about that. She states that her other medicines do not help her enough. She follows primarily with Dr. Ambrocio. PAST MEDICAL HISTORY: Documented on the record and reviewed by me. SOCIAL HISTORY: Documented on the record and reviewed by me. MEDICATIONS: Documented on the record and reviewed by me. ALLERGIES: DOCUMENTED ON THE RECORD AND REVIEWED BY ME. REVIEW OF SYSTEMS: All systems were reviewed and negative except as noted in the HPI. PHYSICAL EXAMINATION: VITAL SIGNS: Blood pressure 156/67, pulse 75, respiratory rate is 18, temperature 98.3, and SpO2 is 93% on room air. Pain is rated at moderate to severe by the patient. GENERAL: Age-appropriate female, recumbent on the exam table, tearful, but no apparent pain or distress. NEUROLOGIC: Awake and alert. GCS is 15. No focal deficits. No asymmetry. HEENT: Normocephalic, atraumatic. Eyes are PERRL. Oropharynx is clear. NECK: Supple. Trachea is midline. CHEST: Heart has a regular rate and rhythm. No murmurs. Lungs are clear to auscultation bilaterally with no rhonchi, wheezes, or rales. PATIENT'S NAME: JARETT GUZMAN [facility] AGE: 86 Y [address] ROOM: [place] [address] LOCATION: [facility] ADMIT DATE: 10/28/2016 ER/Outpatient Report DISCHARGE DATE: 10/28/2016 FAMILY PHYSICIAN: Raymond Ambrocio MD ATTENDING PHYSICIAN: Harsha Stahl ABDOMEN: Soft, nontender, and nondistended. No rebound or guarding other than that the patient is painful no matter where I touch her. BACK: Normal to inspection and palpation with no focal spinal or paraspinal tenderness. Surgical site is clean and intact. No evidence of infection. No erythema, warmth, masses, or fluctuance. EXTREMITIES: Edematous, but otherwise grossly unremarkable. No obvious rashes or breakdown. SKIN: Appears to be grossly intact. LABORATORY AND X-RAY DATA: Abdominal and chest films are grossly unremarkable per my review. Serum lactate is 0.7. CBC without appreciable abnormalities. Urinalysis is without infection. CMS with no electrolyte abnormalities. Renal function is notable for a GFR of 45, which appears to be at baseline. No LFT abnormalities. CRP is 0.92. The proBNP is 1565. Urinalysis does have 50 to 100 white cells, few bacteria, and some starch crystals. ESR is 46. IMPRESSION: General malaise and back pain with weight gain. EMERGENCY DEPARTMENT COURSE: The patient was seen and evaluated as above. She has no urinary symptoms, making urinary tract infection unlikely as the cause for her current presentation though she does have what appears to be pyuria. I discussed the case with Dr. Ambrocio, the patient's primary care provider. He will see her in close followup. Recommend continuation of all home medications. The patient will need symptom management per Dr. Ambrocio. She was discharged to the care of her son. All questions were answered, and the patient was discharged in good condition. MD GRACIA RANGEL/ovidiol /[id number] d: 10/29/16 1515 t: 11/11/16 0959, OUTPATIENT REPORT
[~2016-10-28 09:25] MED LIST changes: -ARTIFICIAL TEAR15 ML OPHTH; -BUTRANS1 EAC1 TOP; -CITRACAL950 MG PO; -FISH OIL 1,0001 EACH PO; -I-CAPS WITH LU1 EACH PO; -PERCOCET 10-321 EACH PO; -PROTONIX40 MG PO; -SLOW-MAG (64 MG1 TAB PO; -SPIRONOLACTONE25 MG PO; -SYSTANE 0.3-0.1 EACH OPHTH; -ZOFRAN8 MG PO; -[UNRECOGNIZED DRUG - OTHER] PO
[2016-10-28 10:11] LABS: BASOPHIL % 0.6 %; EOSINOPHIL # 0.2 K/uL (0.0-0.5); EOSINOPHIL % 3.7 %; HEMATOCRIT 30.6 % (30.0-46.0); IMMATURE GRANULOCYTE % 0.2 %; LYMPHOCYTE # 0.7 K/uL (0.8-4.0); LYMPHOCYTE % 13.8 %; MCH 32.1 pg (27.0-34.0); MCHC 32.7 gm/dL (32.0-36.5); MCV 98.1 fl (83.0-98.0); MONOCYTE # 0.6 K/uL (0.0-1.0); MONOCYTE % 11.9 %; MPV 9.8 fl (9.4-12.4); NEUTROPHIL # (ANC) 3.8 K/uL (1.8-7.8); NEUTROPHIL % 69.8 %; NRBC % 0 /100WBC (0-0.00); RBC 3.12 M/uL (3.00-5.00); RDW-CV 14.8 % (11.9-14.6); WBC 5.4 K/uL (4.0-11.0)
[2016-10-28 10:13] LABS: PLATELET COUNT 229 K/uL (150-450)
[2016-10-28 10:36] LABS: ALBUMIN 2.9 gm/dL (3.5-5.0); ANION GAP 9.2 (10.0-19.0); CREATININE 1.1 mg/dL (0.5-1.1); POTASSIUM 4.2 mMol/L (3.7-5.1); TOTAL BILIRUBIN 0.4 mg/dL (0.0-1.5); TOTAL PROTEIN 5.8 g/dL (6.0-8.4)
[2016-10-28 10:37] LABS: BILIRUBIN URINE NEGATIVE (NEGATIVE); BLOOD URINE NEGATIVE /UL (NEGATIVE); COLOR URINE YELLOW (YELLOW); GLUCOSE URINE NEGATIVE (NEGATIVE); KETONE URINE NEGATIVE (NEGATIVE); LEUKOCYTES URINE 100 /UL (NEGATIVE); NITRITE URINE NEGATIVE (NEGATIVE); PROTEIN URINE NEGATIVE (NEGATIVE); SPEC GRAVITY URINE 1.015 (1.003-1.035); TURBIDITY URINE CLEAR (CLEAR); UROBILINOGEN URINE NORMAL (NORMAL)
[2016-10-28 10:52] LABS: WBC URINE 50-100 #/HPF (NEGATIVE)
[2016-10-28 10:56] LABS: AMORPHOUS URINE 1+ (NEGATIVE); BACTERIA URINE FEW (NEGATIVE); CRYSTALS URINE OTHER: (NEGATIVE); EPITHELIAL URINE 0-2 #/HPF (NEGATIVE); MUCUS URINE 1+ (NEGATIVE)
[2016-10-28 10:57] LABS: HYALINE CAST URINE 0-2 #/LPF (NEGATIVE)
== END 2016-10-28 12:30 | disposition disaster alternative care site (69) ==
LOC: GMED 09:25
PROVIDERS: Emergency Medicine
DX: M54.9 Dorsalgia, unspecified (principal); R53.81 Other malaise; F41.9 Anxiety disorder, unspecified; D64.9 Anemia, unspecified; R63.5 Abnormal weight gain; I11.9 Hypertensive heart disease without heart failure; I48.91 Unspecified atrial fibrillation; I25.10 Atherosclerotic heart disease of native coronary artery without angina pectoris; Z88.5 Allergy status to narcotic agent; Z88.1 Allergy status to other antibiotic agents; Z79.82 Long term (current) use of aspirin; Z79.899 Other long term (current) drug therapy; Z95.1 Presence of aortocoronary bypass graft
CPT/HCPCS: J3010

== ENCOUNTER → 2016-10-28 | Outpatient (CLI) | payer MEDICARE, OTHER ==
[~2016-10-28] MED LIST changes: +ARTIFICIAL TEAR15 ML OPHTH; +BUTRANS1 EAC1 TOP; +CITRACAL950 MG PO; +FISH OIL 1,0001 EACH PO; +I-CAPS WITH LU1 EACH PO; +MILK OF MA400 MG/5 M PO; +PERCOCET 10-321 EACH PO; +PROTONIX40 MG PO; +SLOW-MAG (64 MG1 TAB PO; +SPIRONOLACTONE25 MG PO; +SYSTANE 0.3-0.1 EACH OPHTH; +VALIUM5 MG PO; +ZOFRAN8 MG PO; +[UNRECOGNIZED DRUG - OTHER] PO
== END | disposition disaster alternative care site (69) ==
LOC: GAMB 09:08
DX: M54.9 Dorsalgia, unspecified (principal); M43.20 Fusion of spine, site unspecified; I50.9 Heart failure, unspecified; R63.5 Abnormal weight gain; Z95.1 Presence of aortocoronary bypass graft; Z79.82 Long term (current) use of aspirin; Z79.891 Long term (current) use of opiate analgesic; Z88.8 Allergy status to other drugs, medicaments and biological substances; Z88.1 Allergy status to other antibiotic agents
CPT/HCPCS: A0422; A0425; A0427; J7030

== ENCOUNTER 2016-10-30 11:10 | Inpatient (IN) | payer MEDICARE, OTHER ==
[~2016-10-30] VITALS: Ht 172.7 cm; Wt 87.6 kg
--- NOTE | ~2016-10-30 | ECHO ---
Transthoracic Echocardiography Report (TTE) Demographics Patient Name JARETT GUZMAN Date of Study 10/30/2016 Patient Number [id number] Visit Number [id number] Date of 1930 Room Number G6331 Gender Female Number Age 86 year(s) Referring Cristóbal Limon Bartender Marii Smith, Physician RT,RVT,RDCS Physician Interpreting Kayleigh Moralez Customer Relations Representative Physician Supervising Ordering Cristóbal Limon MD, MD/MLP Physician Nurse [employer] Conclusions Contractility Score Summary Normal Left Ventricular contractility was noted. Summary The estimated left ventricular ejection fraction is 50-55% with normal internal dimension and WM.Moderate LVH. Moderate biatrial dilatation. Mildly dilated right ventricle. Pleural effusion present. The aortic valve is mildly sclerotic. There is mild aortic regurgitation by color Doppler. There is moderate pulmonary hypertension. The pulmonary pressure (RVSP) is 43 mmHg. Mild tricuspid regurgitation by color Doppler. Mild pulmonic valve regurgitation by color Doppler. Procedure Type of Study TTE procedure:2D Echocardiogram, M-Mode, Doppler , Color Doppler. Procedure Date Date: 10/30/2016 Start: 01:00 PM Study Location: Inpatient Portable Technical Quality: Adequate visualization Indications:Dyspnea/SOB. Appropriate Use Criteria: 9 Patient Status: Routine HR: 65 bpm BP: 153/65 mmHg M-Mode/2D Measurements LV Diastolic Dimension: 4.18 cm LV Systolic Dimension: 2.93 cm LV Septum Diastolic: 1.46 cm LV Septum Systolic: 1.65 cm LV PW Diastolic: 1.4 cm LV PW Systolic: 1.69 cm AO Root Dimension: 3.3 cm RV Diastolic Dimension: 4.3 cm AV Cusp Separation: 1.5 cm EF Estimated: 55 % LA Dimension: 3.8 cm MV EPSS: 1 cm LA volume: 85 ml RV Mid: 4.3 cm LVOT VTI: 18.5 cm RV Length: 5.6 cm TDI-S': 9.9 cm/s Doppler Measurements AV Peak Velocity: 1.34 m/s MV Peak E-Wave: 1.24 m/s AV Peak Gradient: 7.18 mmHg MV Peak A-Wave: 0.95 m/s AV Mean Gradient: 4 mmHg MV E/A Ratio: 1.31 LVOT Peak Velocity: 0.69 m/s MV P1/2t: 66 msec AV P1/2t: 318 msec TR Gradient:33.18 mmHg PV Peak Velocity: 0.65 m/s Estimated RAP:10 mmHg PV Peak Gradient: 1.7 mmHg Estimated RVSP: 43 mmHg Estimated PASP: 43.18 mmHg E' Septal Velocity: 0.05 m/s A' Septal Velocity: 0.05 m/s E' Lateral Velocity: 0.1 m/s A' Lateral Velocity: 0.07 m/s MV E/E' Ratio: 22.6 Findings Left Ventricle Moderate concentric left ventricular hypertrophy with normal internal dimension,EF and WM. Right Ventricle Mildly dilated right ventricle. Left Atrium The left atrium is moderately dilated by LA volume index measurement. Right Atrium The right atrium is moderately dilated. Mitral Valve Normal mitral valve structure and function. Aortic Valve The aortic valve is mildly sclerotic. There is mild aortic regurgitation by color Doppler. Tricuspid Valve There is moderate pulmonary hypertension. The pulmonary pressure (RVSP) is 43 mmHg. Mild tricuspid regurgitation by color Doppler. Pulmonic Valve Mild pulmonic valve regurgitation by color Doppler. Pericardial Effusion No evidence of pericardial effusion. Miscellaneous Visualized portions of the aortic root and ascending aorta appear normal in size. Pleural Effusion Pleural effusion present. Contractility Score LV regional wall motion:(0-Non visualized 1-Normal 2-Hypokinesis 3-Akinesis 4-Dyskinesis 5-Aneurysm) Signature dtt: Naomy Victor dtd: 10/30/[address] [facility] Physician Self Edit
--- NOTE | ~2016-10-30 | HP ---
PATIENT'S NAME: JARETT GUZMAN [facility] AGE: 86 Y [address] ROOM: [facility] [place] [address] LOCATION: GPCU ADMIT DATE: 10/31/2016 History & Physical DISCHARGE DATE: 11/04/2016 FAMILY PHYSICIAN: Analy August MD ATTENDING PHYSICIAN: Analy August DATE OF SERVICE: HISTORY OF PRESENT ILLNESS: Clinical Update: A long discussion today with the patient and her daughter by phone, Joseline Danny in regard to the patient's evaluation and treatment here in the hospital. Special attention to the fact on admission that I told the patient and her daughter that she would have both acute and chronic back pain, but I would have Dr. Maximino Lane review the case again, because he had done her kyphoplasty at L2 for previous compression fracture. Dr. Lane has been asked to see the patient later today or tomorrow, to talk to both the patient and her daughter about the management plan for back pain going forward. I have expressed my concerns to the patient and her daughter that she will continue to have both acute and chronic back pain and have to take medications for that, but there is some hope being held out that Dr. Maximino Lane can give us other options that may help her pain. In review, I also told the patient and her daughter today that her congestive heart failure, diastolic was improved and the edema in her right lower leg was not secondary to a deep vein thrombosis or cellulitis. Vital signs are noted. MEDICATIONS: Medication list reviewed. PHYSICAL EXAMINATION: HEENT: Benign. NECK: Shows no JVD. Thyroid is not enlarged. Lungs: Clear. CARDIOVASCULAR: Heart sounds irregular, rate of 80. ABDOMEN: Benign. EXTREMITIES: The edema in her right lower leg is resolved. There is no redness in the right lower leg. IMPRESSION: 1. Right leg edema, improved with treatment of her diastolic congestive heart failure, with negative venous Doppler and no sign of cellulitis of right lower leg at this point after 2 days of IV antibiotic. 2. Remote urinary tract infection. PATIENT'S NAME: JARETT GUZMAN [facility] AGE: 86 Y [address] ROOM: [facility] [place], [place] [address] LOCATION: GPCU ADMIT DATE: 10/31/2016 History & Physical DISCHARGE DATE: 11/04/2016 FAMILY PHYSICIAN: Analy August MD ATTENDING PHYSICIAN: Analy August 3. Low back pain secondary to compression fracture at L2 status post kyphoplasty with continued ongoing back pain. 4. Chronic gastroesophageal reflux disease, asymptomatic. 5. Depression, major, in partial remission. 6. Chronic anxiety. 7. Hypertension, essential. 8. Atrial fibrillation. PLAN: As above. ANALY AUGUST MD SKIRT TRIMMER/modl /[id number] D: [id number] T: [id number] HISTORY & PHYSICAL
--- NOTE | ~2016-10-30 | CON ---
PATIENT'S NAME: RENETTA GUZMAN [facility] AGE: 86 Y [address] ROOM: G6[address] [place], [place] [address] LOCATION: GPCU ADMIT DATE: 10/30/2016 Consultation DISCHARGE DATE: FAMILY PHYSICIAN: ANALY AMBROCIO MD ATTENDING PHYSICIAN: ANALY AMBROCIO DATE OF CONSULTATION: 10/30/2016 REFERRING PHYSICIAN: Andreas Lane MD The patient of Dr. Ambrocio. Dear Dr. Ambrocio: Thank you for asking me to see Mrs. Guzman who is usually a patient of Dr. Lane. He is off today and I am on-call which is the reason for me seeing Renetta. She is hospitalized mainly for her back pain. She has problems with lumbar degeneration and stenosis, listhesis, and instability along with osteoporosis and underwent lumbar 2 kyphoplasty on the 21 of October. Since then, her back pain has been still persisting significantly and she is here for pain control and also she has gained about 15 pounds in weight compared to last month at the prison. She has noticed a lot of edema. She denies any chest pains. She has no significant shortness of breath. She was walking with a walker up until about 7 days ago and the last 7 days, she has not done much of walking. She is in functional class 3-4 with no paroxysmal nocturnal dyspnea or orthopnea. She denies any lightheadedness, dizziness, syncope, presyncope, or any palpitations. Her rhythm is sinus on amiodarone. She has at least 2+ swelling in her ankles. The patient has history of coronary artery disease and has a history of UT. She had bypass grafting done in 2016. There is no history of rheumatic fever. However, she has history of congestive heart failure with preserved ejection fraction and atrial fibrillation for which she is on Cordarone. The patient has history of hypertension and hyperlipidemia. She has no history of diabetes. She denies tobacco abuse or family history of premature coronary artery disease. Postoperatively, she had bilateral pleural effusion which persisted for a long period of time, causing problems as well. She has developed some cough whenever she has diastolic heart failure. However now she appears as if she has right-sided heart failure as well. MEDICATIONS: PATIENT'S NAME: RENETTA GUZMAN [facility] AGE: 86 Y [address] ROOM: [place] [address] LOCATION: GPCU ADMIT DATE: 10/30/2016 Consultation DISCHARGE DATE: FAMILY PHYSICIAN: ANALY AMBROCIO MD ATTENDING PHYSICIAN: ANALY AMBROCIO 1. Lasix 40 mg a day. 2. Amiodarone 200 daily. 3. Sandisfield-3 1200 mg a day. 4. Fluticasone one puff b.i.d. 5. MiraLAX 17 g once a day. 6. Potassium chloride 20 mEq a day. 7. Niferex 150 mg b.i.d. 8. Aspirin 325 mg a day. 9. Oxygen. 10. Tylenol. 11. Sertraline 50 mg a day. 12. Florastor 250 mg b.i.d. 13. TriComfort supplement one dose a day. 14. Albuterol 2.5 mg at bedtime. 15. Requip 2 mg at bedtime. 16. Losartan 25 mg b.i.d. 17. Breo one puff daily. 18. Artificial tears. 19. Multivitamin once a day. 20. Atorvastatin 40 mg a day. 21. Aspercreme. 22. Tramadol 50 mg 1-2 tablets every 6 hours. 23. Diazepam 5 mg every 8 hours p.r.n. 24. Magnesium hydroxide. 25. Protonix 40 mg a day. ALLERGIES: FENTANYL, CLINDAMYCIN, AND RIVAROXABAN. PAST MEDICAL HISTORY: 1. Severe back pain. 2. History of asthma. 3. Diverticulosis. 4. History of pneumonias. 5. History of renal failure secondary to nephritis at age 30. 6. Tonsillectomy and adenoidectomy. 7. Hysterectomy. SOCIAL HISTORY: The patient lives in a prison. She denies abusing alcohol. Her appetite and weight are stable. Sleep is fair. FAMILY HISTORY: No premature coronary artery disease. PATIENT'S NAME: RENETTA GUZMAN [facility] AGE: 86 Y [address] ROOM: [address] [address] LOCATION: GPCU ADMIT DATE: 10/30/2016 Consultation DISCHARGE DATE: FAMILY PHYSICIAN: ANALY AMBROCIO MD ATTENDING PHYSICIAN: ANALY AMBROCIO REVIEW OF SYSTEMS: A 12-point review of systems: 1. History of corrective lenses. 2. Cataracts removed bilaterally. 3. Glaucoma. 4. Healed ulcer in the stomach. 5. Hysterectomy and ovariectomy. 6. Occasional depression. 7. Severe back pain. PHYSICAL EXAMINATION: VITAL SIGNS: On examination, her blood pressure is 170/80, heart rate is in the 70s and regular, respirations 18, afebrile. HEENT: Normal. NECK: Supple and JVP is elevated up to middle of the neck. HEART: First and second heart sounds are regular. There are no added sounds or murmurs. CHEST: Clear to auscultation. ABDOMEN: Soft. EXTREMITIES: Reveal 2+ to 3+ edema. ASSESSMENT: 1. History of diastolic congestive heart failure which has exacerbated. There is also an element of right heart failure now. 2. Severe back pain. RECOMMENDATIONS: We will hold off the ARB for now and also oral Lasix, and put her on Lasix infusion, and monitor her orthostatic blood pressures and her BMP until she gets to be a dry weight. Again, I appreciate this opportunity to participate in the care of Mrs. Guzman. MD ARSENIO GONZALEZ/lindsey /[id number] d: 10/30/161916 t: 10/31/16 1304, CONSULTATION REPORT
--- NOTE | ~2016-10-30 | DS ---
PATIENT'S NAME: JARETT GUZMAN [facility] AGE: 86 Y [address] ROOM: [address] [place], [place] [address] LOCATION: GPCU ADMIT DATE: 10/31/2016 Discharge Summary DISCHARGE DATE: 11/04/2016 FAMILY PHYSICIAN: Raymond Ambrocio MD ATTENDING PHYSICIAN: Raymond Ambrocio FINAL DIAGNOSES: 1. Right leg swelling, acute, secondary to diastolic congestive heart failure acute exacerbation. (Workup here was negative. Venous Doppler of right lower leg, no sign of infection. Antibiotics were discontinued after admission). 2. Hypertension, essential. 3. Acute exacerbation of diastolic congestive heart failure. 4. Status post coronary bypass graft. 5. Atrial fibrillation, rate controlled, present on admission. 6. Gastroesophageal reflux, chronic without esophagitis. 7. Anxiety, chronic. 8. Depression, in partial remission. 9. Low back pain, severe, secondary to previous remote compression fracture of L2, status post kyphoplasty. HOSPITAL COURSE: The patient was admitted out of my office with a severe right lower leg swelling and severe low back pain that did not improve since she had her kyphoplasty done by Dr. Maximino Lane, Orthopedic surgeon for a recent compression fracture of L2. I put her in the hospital, and obtained a Cardiology consultation because of her history of previous bypass surgery and chronic congestive heart failure, diastolic, and checked a venous Doppler of the right lower leg. She was also started on IV antibiotics in case she had a low-grade infection of her right lower leg. She also had a recent urinary tract infection, and was covered with antibiotics for that reason also. After admission, her venous Doppler came back negative for DVT. Her right leg swelling defervesced with diuresis, and after a couple of days, her IV antibiotic was held. She had no symptoms of dysuria and frequency, but did end up having a Myers catheter placed because of her IV Lasix drip per the car installations supervisor. Prior to going home, the Myers has been discontinued. She was evaluated here by Dr. Maximino Lane, her Back surgeon, and Dr. Lane has said to have her see him back in the office for special x-rays and evaluation in a week. He removed the suture from her back, where he had done her prior kyphoplasty in the lumbar region. PATIENT'S NAME: JARETT GUZMAN [facility] AGE: 86 Y [address] ROOM: [address] [place], [place] [address] LOCATION: GPCU ADMIT DATE: 10/31/2016 Discharge Summary DISCHARGE DATE: 11/04/2016 FAMILY PHYSICIAN: Raymond Ambrocio MD ATTENDING PHYSICIAN: Raymond Ambrocio See copious notes and dictation by Dr. Victor, who saw the patient from a cardiology standpoint here. DISCHARGE MEDICATIONS: The patient goes home on the med list shown, and we have added spironolactone to her regimen for congestive heart failure, refilled her [place] for her back pain, and held off on the antibiotics as far as possible UTI. Certainly, there is no erythema in her right leg to consider cellulitis. Her weight is down at least 6 kg since admission. DISCHARGE PLAN AND INSTRUCTIONS: She is dismissed to home then on the med list shown. I did give her a refill on her [place] 10. I asked her to see me back in the office in a week for followup, and I have asked her to keep her followup appointment with Dr. Maximino Lane. Certainly, if she has increased swelling in her legs, chest pain, shortness of breath, back pain, or fever, she is to be seen earlier. She does understand along with her daughter that she will have chronic and acute back pain in custodial. She goes home neurologically intact in her lower extremities, and her edema is much improved. MD BHAVANI WOLFE/modl /[id number] d: 11/05/16 0020 t: 11/13/161850, DISCHARGE SUMMARY
--- NOTE | ~2016-10-30 | CON ---
PATIENT'S NAME: JARETT GUZMAN [facility] AGE: 86 Y [address] ROOM: [place] [address] LOCATION: GPCU ADMIT DATE: 10/30/2016 Consultation DISCHARGE DATE: FAMILY PHYSICIAN: ANALY AMBROCIO MD ATTENDING PHYSICIAN: ANALY AMBROCIO DATE OF CONSULTATION: 10/30/2016 REFERRING PHYSICIAN: Analy Ambrocio MD REASON FOR CONSULT: Right lower extremity cellulitis. HISTORY OF PRESENT ILLNESS: This is a pleasant 86-year-old female patient who was admitted to [facility] with right lower extremity cellulitis. She has a history of diastolic congestive heart failure and a recent lumbar kyphoplasty. She currently resides at [facility]. For the last few weeks, she notes increasing weight gain and right lower extremity pain. A right lower extremity DVT has been ruled out. The patient wears compressive therapy at [facility]; however, has recently been unable to get on. She denies intermittent claudication symptoms. She denies constitutional symptoms. She is a nonsmoker and nondiabetic. She reports a good oral intake. She believes she has had cellulitis before. PAST MEDICAL HISTORY: Diastolic congestive heart failure, coronary artery disease, paroxysmal atrial fibrillation, bilateral pleural effusions, essential hypertension, nocturnal hypoxemia, hypercholesteremia, pulmonary hypertension, renal failure, frequent pneumonias, diverticulitis, back pain, asthma, scoliosis, and depression. PAST SURGICAL HISTORY: Tonsil and adenoidectomy, hysterectomy, coronary artery bypass grafting, thoracentesis, and L2 kyphoplasty on 10/21/2016. FAMILY HISTORY: None listed. SOCIAL HISTORY: The patient currently resides at [facility]. She is a nonsmoker. She denies alcohol use. ALLERGIES: FENTANYL, XARELTO, AND CLINDAMYCIN. CURRENT MEDICATIONS: PATIENT'S NAME: JARETT GUZMAN [facility] AGE: 86 Y [address] ROOM: [place] [address] LOCATION: GPCU ADMIT DATE: 10/30/2016 Consultation DISCHARGE DATE: FAMILY PHYSICIAN: ANALY AMBROCIO MD ATTENDING PHYSICIAN: ANALY AMBROCIO Please refer to the medication administration record. REVIEW OF SYSTEMS: Pertinent positives addressed in the HPI and others are negative. PHYSICAL EXAMINATION: VITAL SIGNS: Temperature is 97.6, pulse 71, respirations 16, blood pressure 170/72, and pulse oximetry 94% on room air. Height 5 feet and 8 inches and weight 93.0 kg. GENERAL: The patient is alert and oriented x3. Appears her stated age. Very pleasant with cares. Ambulates with steady gait. HEENT: Head: Normocephalic, atraumatic. Oral mucosa intact. CARDIOVASCULAR: Deferred. ABDOMEN: Soft. MUSCULOSKELETAL: Her right lower back has one suture intact. Site is slightly indurated. No erythema or drainage. EXTREMITIES: +2 to +3 right lower leg edema. Pedal pulses +1. Capillary refill intact. Toenails are not thick and mycotic. Heels intact. No hair growth noted. Right lower extremity is shinny and taut. No open ulcers. SKIN: Please see extremity assessment above. The patient has scattered seborrheic keratosis spots to her lumbar back region. Buttocks intact. Groin folds intact. ASSESSMENT AND PLAN: Again, this is a pleasant 86-year-old female patient who was admitted to [facility] with right lower leg cellulitis. 1. Right lower extremity cellulitis. No open wounds noted. Area complicated by congestive heart failure. The patient on intravenous antibiotics and a Lasix drip. Compress right lower extremity with an [place] wrap from toes to popliteal crease. Discussed the importance of elevation and ankle calf pump muscle exercises. The patient will need lifelong compression. 2. L2 kyphoplasty. The patient will have suture removal as an outpatient. I would like to thank Dr. Ambrocio for this consult. MICKEY LEE APRN FOR MD RAFAEL RUIZ/lindsey /[id number] d: 10/31/1659 t: 11/13/16 0851, CONSULTATION REPORT
--- NOTE | ~2016-10-30 | CON ---
PATIENT'S NAME: JARETT GUZMAN [facility] AGE: 86 Y [address] ROOM: [place] [address] LOCATION: GPCU ADMIT DATE: 10/30/2016 Consultation DISCHARGE DATE: FAMILY PHYSICIAN: ANALY AUGUST MD ATTENDING PHYSICIAN: ANALY AUGUST DATE OF CONSULTATION: 10/30/2016 REFERRING PHYSICIAN: Andreas Estrada MD TIME: 6:30 p.m. HISTORY OF PRESENT ILLNESS: Ms. Guzman is an 86-year-old white female. She is 9 days status post vertebral body augmentation after void creation. She had a subacute lumbar 2 fracture with severe pain. No suggestion of metastatic disease or infection. She does have osteoporosis and she had multiple remote other compression fractures which had healed. She also has degenerative scoliosis. She has stenosis and intermittent neuropathic leg pain, deformity, and deconditioning. She understands before the procedure that vertebral body augmentation would only help with the pain directly associated with a compression fracture, but would not help with the other problems. A 50% improvement of her pain from VBA would be a good result. Procedure was done without complication. She comes in the hospital today with shortness of breath and increasing pain in the right calf. She is being treated with diuresis for fluid overload and being worked up for a possible DVT in the right leg. She has had some degree of pain since the procedure, but admits that it is significantly better than what it was prior to the vertebral body augmentation. At this time, the pain is minimal. Denies any weakness in the legs. Has some numbness in both feet, more on the right side than on the left side. No changes in her bowel or bladder control. MEDICATIONS: See list. ALLERGIES: TO CLINDAMYCIN AND FENTANYL. PAST MEDICAL HISTORY: Coronary artery disease, asthma, atrial fibrillation, and pulmonary hypertension. SOCIAL HISTORY: She does not smoke or drink. She is in the care home. PATIENT'S NAME: JARETT GUZMAN [facility] AGE: 86 Y [address] ROOM: [place] [address] LOCATION: GPCU ADMIT DATE: 10/30/2016 Consultation DISCHARGE DATE: FAMILY PHYSICIAN: ANALY AUGUST MD ATTENDING PHYSICIAN: ANALY AUGUST FAMILY MEDICAL HISTORY: Remarkable for coronary artery disease and metastatic colon cancer. PHYSICAL EXAMINATION: GENERAL: White female, no acute distress. She is sitting up in a chair, smiling and laughing. HEENT: She hears and sees. LUNGS: Able to take in a deep breath. HEART: Pulse rate is regular. ABDOMEN: Soft, nontender. PELVIS: Stable. MUSCULOSKELETAL: She moves her back without pain. The back incision is examined, the signal and sutures are intact. There is no redness, warmth, or drainage. No tenderness. No palpable spasm. NEUROLOGIC: Iliopsoas strength is 5/5 bilaterally, quadriceps 5/5 bilaterally, anterior tib 5/5 bilaterally, extensor hallucis longus 5/5 bilaterally, and gastrocs 5/5 bilaterally. Sensation, some hyperpathic sensation in both lower extremities, right greater than left. Minimal pedal edema. Distal pulses palpable. INTEGUMENT: Intact. LABORATORY DATA: White blood count is 5.2, hemoglobin is 10.7. Reviewing the nursing notes, she has been afebrile. ASSESSMENT AND PLAN: The vertebral body augmentation helped with the severe pain from the L2 compression fracture, but she does have persisting symptoms from her degenerative scoliosis, instability, stenosis, deformity, and deconditioning. With a normal white blood count and unremarkable physical examination, we would not do any additional imaging studies of the back today. Certainly slowly mobilizing the patient is the best treatment, avoiding new fractures, and treating her osteoporosis. We will follow up in the office as scheduled for suture removal. RADHA ESTRADA MD DPM/lindsey /[id number] d: 10/30/161937 t: 11/02/16 1004, CONSULTATION REPORT
--- NOTE | ~2016-10-30 | ENPV ---
Vascular Lower Extremities DVT Study Procedure Demographics Patient Name JARETT GUZMAN Date of Study 10/30/2016 Patient Number [id number] Gender Female Date of 1930 Age 86 Visit Number [id number] Height 68 Weight 210 Number Referring Cristóbal Limon MD Interpreting Mukesh Blackwell MD Physician Physician Physician Ordering Cristóbal Limon Applications Engineering Manager Physician Radius Corner Machine Operator Marii Smith, RT,RVT,RDCS Conclusions Summary Normal venous duplex examination of the legs bilaterally with normal venous Doppler signals noted throughout. No evidence of thrombophlebitis is noted bilaterally in the deep and superficial veins of the legs. Small calf thrombi cannot be excluded. Procedure Type of Study: Veins:Lower Extremities DVT Study, Lower Extremity Right. Indications for Study:Unilateral pain and edema. Appropriate Use Criteria:7 Patient Status:Routine. Study Location:Inpatient Portable. Technical Quality:Adequate visualization. - Preliminary reported to:AMY Randolph. Velocities are measured in cm/s ; Diameters are measured in cm Right Lower Extremities DVT Study Measurements Right 2D and Doppler Measurements + + + + +------+------+ + !Location !Visualized!Compressibility!Thrombosis!Signal!Reflux!Reflux ! ! ! ! ! ! ! !(sec) ! + + + + +------+------+ + !GSV Thigh !Yes !Yes !None !Phasic!No ! ! + + + + +------+------+ + !Common !Yes !Yes !None !Phasic!No ! ! !Femoral ! ! ! ! ! ! ! + + + + +------+------+ + !Prox !Yes !Yes !None !Phasic!No ! ! !Femoral ! ! ! ! ! ! ! + + + + +------+------+ + !Mid Femoral!Yes !Yes !None !Phasic!No ! ! + + + + +------+------+ + !Dist !Yes !Yes !None !Phasic!No ! ! !Femoral ! ! ! ! ! ! ! + + + + +------+------+ + !Popliteal !Yes !Yes !None !Phasic!No ! ! + + + + +------+------+ + !Gastroc !Yes !Yes !None !Phasic!No ! ! + + + + +------+------+ + !PTV !Yes !Yes !None !Phasic!No ! ! + + + + +------+------+ + !Peroneal !Yes !Yes !None !Phasic!No ! ! + + + + +------+------+ + Left Lower Extremities DVT Study Measurements Left 2D and Doppler Measurements + + + + +------+------+ + !Location !Visualized!Compressibility!Thrombosis!Signal!Reflux!Reflux ! ! ! ! ! ! ! !(sec) ! + + + + +------+------+ + !Common !Yes !Yes !None ! ! ! ! !Femoral ! ! ! ! ! ! ! + + + + +------+------+ + Impressions Right Impression No evidence of deep vein thrombosis in the right lower extremity. interstitial fluid seen in right calf. there is a popliteal cyst present also. Left Impression Common femoral vein imaged for comparison and found to be normal. Signature dtt: KELSEY FRIEDMAN dtfavian: 10/30/16 1328 Physician Self Edit
[2016-10-30 12:33] LABS: BASOPHIL % 0.8 %; EOSINOPHIL # 0.2 K/uL (0.0-0.5); EOSINOPHIL % 4.4 %; HEMATOCRIT 34.7 % (30.0-46.0); HEMOGLOBIN 10.7 g/dL (10.0-15.0); IMMATURE GRANULOCYTE % 0.2 %; LYMPHOCYTE # 1.1 K/uL (0.8-4.0); LYMPHOCYTE % 20.5 %; MCH 31.2 pg (27.0-34.0); MCHC 30.8 gm/dL (32.0-36.5); MCV 101.2 fl (83.0-98.0); MONOCYTE # 0.6 K/uL (0.0-1.0); MONOCYTE % 11.5 %; MPV 10.3 fl (9.4-12.4); NEUTROPHIL # (ANC) 3.3 K/uL (1.8-7.8); NEUTROPHIL % 62.6 %; NRBC % 0 /100WBC (0-0.00); PLATELET COUNT 270 K/uL (150-450); RBC 3.43 M/uL (3.00-5.00); RDW-CV 14.9 % (11.9-14.6); WBC 5.2 K/uL (4.0-11.0)
[2016-10-30] MEDS ORDERED: PROTONIX40 MG PO (12:45)
[2016-10-30 12:52] LABS: ALBUMIN 3.3 gm/dL (3.5-5.0); ANION GAP 11.5 (10.0-19.0); CALCIUM 7.9 mg/dL (8.5-10.5); MAGNESIUM 2.4 mg/dL (1.8-2.6); POTASSIUM 4.5 mMol/L (3.7-5.1); TOTAL BILIRUBIN 0.4 mg/dL (0.0-1.5); TOTAL PROTEIN 5.9 g/dL (6.0-8.4)
--- NOTE | 2016-10-30 13:02 | NUR ---
Pt is 86 y/o female admit for CHF and possible DVT for . Pt alert and oriented x3. Resides at [facility]. Has been frequently hospitalized. Hx afib,htn,CHF,CABG,edema,AZ,pneumonia,SOB,pleural effusion, 2L O2 at HS,chronic back problems,compression fx, gerd,ulcer,anxiety, depression,incontinent urine. Allergy to fentanyl,xarelto,clindamycin. REd and yellow bracelets on. Came from office.
[2016-10-31 02:30] LABS: ANION GAP 12.7 (10.0-19.0); CALCIUM 7.9 mg/dL (8.5-10.5); CREATININE 1.1 mg/dL (0.5-1.1); MAGNESIUM 2.2 mg/dL (1.8-2.6); POTASSIUM 3.7 mMol/L (3.7-5.1)
--- NOTE | 2016-10-31 04:06 | NUR ---
Signignificant event: A/O x 3. Lasix gtt going when I took over care for patient at 0030 patient stated she wanted a may placed at that time, order recieved for may. Lasix drip to be shut off at 0600. Had 1800 out of may plus several incon. No c/o pain except when directly touching the right leg otherwise patient has been pain free. On 2l NC during the noc and RA during day.
--- NOTE | 2016-10-31 12:12 | NUR ---
Introduced self and role of care management to patient. She lives at [facility]. She states that she is able to do her own ADL's. She does use a walker. She states that her daughter is thinking about having [facility] administer her medications. She plans on returning home on discahrge. She denies any needs at this time. Will continue to follow.
--- NOTE | 2016-10-31 17:09 | NUR ---
Significant Event: A/O X3. UP WITH 1 ASSIST, GB AND WALKER. C/O PAIN TO BACK, NORCO 1 TAB GIVEN X2. LASIX GTT @ 1 MG/HR FROM 1025 TO 1640, OFF NOW. GARBER CATHETER WITH 2850 ML UOP. HAS C/O SOME BLADDER FULLNESS WITH LEAKING AROUND CATHETER. BM X2 MODERATE. IV TO RIGHT FA SL'D CURRENTLY. TO HAVE CT OF CHEST FOR PE PROTOCOL FOR ELEVATED D-DIMER TONIGHT. NA BICARB @ 80 ML/HR FOR 7 HOURS. RIGHT LOWER LEG REMAINS EDEMATOUS AND RED. Follow up: CONTINUE TO MONITOR.
[2016-10-31 18:21] LABS: ANION GAP 13.3 (10.0-19.0); CALCIUM 8.5 mg/dL (8.5-10.5); CREATININE 1.5 mg/dL (0.5-1.1); POTASSIUM 4.3 mMol/L (3.7-5.1)
--- NOTE | 2016-11-01 06:39 | NUR ---
Significant Event: Patient is alert/oriented x3. Vital signs are stable. CT scan of chest per PE protocol cancelled per Dr. Victor. Will do VQ scan this AM instead. Room air during the day and 2L O2 at night. [place] given x2 last night, with relief. Myers remains in place with great UOP. Right leg continues to be edematous with erythema and tender to touch; doing IVP Ancef. Follow up: Continue to monitor per plan of care.
[2016-11-01 06:51] LABS: ANION GAP 10.9 (10.0-19.0); CALCIUM 8.3 mg/dL (8.5-10.5); CREATININE 1.1 mg/dL (0.5-1.1); POTASSIUM 3.9 mMol/L (3.7-5.1)
--- NOTE | 2016-11-01 17:09 | NUR ---
Significant Event:Patient has been up in chair and to bathroom. Tolerated well. Has had a mod BM. Started on Lasix and Alldactone today. IV antibiotics dc'd. The redness in the lower extremities is gone, and most of the edema. Afbrile. N orcco once for c/o back pain. Follow up:Pain control, and do orthos daily
[2016-11-02 04:42] LABS: CALCIUM 8.3 mg/dL (8.5-10.5)
--- NOTE | 2016-11-02 05:06 | NUR ---
Significant events: Pt A/Ox3. VSS. Boissevain at HS for back pain. Up SBA. BMx1. On 2L when asleep. Myers in place, 950mL out. Slept well this shift.
--- NOTE | 2016-11-02 17:14 | NUR ---
Significant Event:Patient has c/o more of back today. Has had [place] twice. Has heating bad to back and alternates to abd. Has given patient some relief. Has ambulated in hallway twice. this morning did one lap around unit, this afternoon did 2 laps. Good urine output. Has had 2 lg BM's.Orthostatic BP negative. Follow up:To TC tomorrow, taya may
[2016-11-03 05:12] LABS: ANION GAP 12.2 (10.0-19.0); CALCIUM 8.1 mg/dL (8.5-10.5); CREATININE 0.9 mg/dL (0.5-1.1); POTASSIUM 4.2 mMol/L (3.7-5.1)
--- NOTE | 2016-11-03 05:26 | NUR ---
Significant Event: PT A/O X3 VSS. SBP 140-150 HR 70-80 SATS 90'S ON RA PT ON 2L NC AT HS. PT HAS GARBER IN WOULD LIKE IT REMOVED THIS AM, WANTED IT LEFT IN TO BE ABLE TO SLEEP AT NIGHT. PT AMBULATES WITH WALKER 1 ASSIST. PT C/O BACK PAIN X2 PT USED HEATING PAD AND NORCO GIVEN. IV SL IN LEFT FOREARM. PT MAY DISCHARGE TODAY BACK TO [facility]. Follow up: FOLLOW CARE PLAN.
--- NOTE | 2016-11-03 14:51 | NUR ---
Received a call from Joseline patient's daughter. We discussed Yvan discharge plans. I explained that per the Physical therapy notes Renetta is walker greater that 300 feet with her walker. I also spke with Yvrose REYES who states patient is getting around very well and should be able to return to [facility]. I did speak with Renetta and she wants to go back to [facility] on dihcarge. Joseline is in agreement with her mother returning to [facility] and resuming [facility] on discharge.
--- NOTE | 2016-11-03 16:11 | NUR ---
Significant Event: A/O. VSS on RA. C/O back pain 01/06 initially but has been controlled since then with routine pain meds. Lucia sharp and patient is voiding well. Dr NASEEM Lane to see tomorrow AM. Follow up: likely dismiss tomorrow.
--- NOTE | 2016-11-04 04:21 | NUR ---
A/O. VSS. AFEBRILE. 1A WALKER GB. VOIDS PER BATHROM. SMALL BMx1. C/O BACK PAIN WHEN UP WALKING. NORCO GIVEN x2. VALUIM GIVEN x1. POSSIBLE DISMISSAL TODAY.
[2016-11-04 06:25] LABS: ANION GAP 12.2 (10.0-19.0); CALCIUM 8.3 mg/dL (8.5-10.5); CREATININE 0.9 mg/dL (0.5-1.1); POTASSIUM 4.2 mMol/L (3.7-5.1)
--- NOTE | 2016-11-04 15:24 | NUR ---
Called and updated Navdeep at [facility] of patient condition.
--- NOTE | 2016-11-04 15:30 | NUR ---
Significant Event: Pt alert and oriented x3. Chronic back pain, norco x2 last at 1426. Vital signs stable. Daily orthostatics. Pt up in room with nurse assist, walker, and gait belt. Will be dismissed back to [facility] today. Follow up:
[2016-11-04] MEDS ORDERED: REQUIP2 MG PO (17:39)
[2016-11-04] MEDS ORDERED: SPIRONOLACTONE25 MG PO (17:40)
--- NOTE | 2016-11-04 19:48 | NUR ---
PATIENT DISMISSED TO [facility]. TRANSP[facility]ED BY [employer] [employer] WITH DAUGHTER. NEW MEDICATIONS, HEART FAILURE, DISMISSAL, AND MEDICATIONS INTRUCTIONS GIVEN TO DAUGHTER AND PATIENT. TRANSFER PACKET GIVEN TO DAUGHTER TO GIVE TO ASSISTED LIVING FACILITY. PATIENT AND DAUGHTER VERBALIZE UNDERSTANDING OF TEACHING. ALL BELONGS WITH PATIENT. TAKE BY WHEELCHAIR TO [facility]. TRANSPORTED BY [employer].
== END 2016-11-04 19:54 | DRG 602 ==
LOC: GPCU 11:11
PROVIDERS: Internal Medicine Interventional Cardiology; ADMIT Family Medicine
DX: L03.115 Cellulitis of right lower limb (principal); I50.33 Acute on chronic diastolic (congestive) heart failure; I82.401 Acute embolism and thrombosis of unspecified deep veins of right lower extremity; I27.2 Other secondary pulmonary hypertension; N39.0 Urinary tract infection, site not specified; E78.5 Hyperlipidemia, unspecified; I10 Essential (primary) hypertension; Z66 Do not resuscitate; I25.10 Atherosclerotic heart disease of native coronary artery without angina pectoris; M41.9 Scoliosis, unspecified; M48.06 Spinal stenosis, lumbar region; Z95.1 Presence of aortocoronary bypass graft; I48.91 Unspecified atrial fibrillation; Z79.01 Long term (current) use of anticoagulants; K21.9 Gastro-esophageal reflux disease without esophagitis; F41.9 Anxiety disorder, unspecified; G89.29 Other chronic pain; M54.9 Dorsalgia, unspecified; F32.4 Major depressive disorder, single episode, in partial remission; Z87.311 Personal history of (healed) other pathological fracture; I25.2 Old myocardial infarction
CPT/HCPCS: A9539; A9540; G0378; G0379; J0690; J1650; J1940; J7030; J7050; J7060

== ENCOUNTER 2016-11-16 07:34 | Inpatient (IN) | payer MEDICARE, OTHER ==
[~2016-11-16] VITALS: Ht 172.7 cm; Wt 85.2 kg
--- NOTE | ~2016-11-16 | HP ---
PATIENT'S NAME: JARETT GUZMAN [facility] AGE: 86 Y [address] ROOM: [place] [address] [place] [facility] [place]: 11/16/2016 History & Physical DISCHARGE DATE: FAMILY PHYSICIAN: ANALY AMBROCIO MD ATTENDING PHYSICIAN: Richard TRACEY DATE OF SERVICE: CHIEF COMPLAINT: Back pain and shortness of breath. HISTORY OF PRESENT ILLNESS: The patient is an 86-year-old female with past medical history of CAD, status post CABG, chronic back pain, nocturnal hypoxia, who presents here from assisted living with worsening of back pain and dyspnea on exertion. The patient reports that she has a history of chronic back pain and was recently admitted to our hospital under Dr. Ambrocio, and was admitted on 10/31, and discharged on 11/04. She presented with swelling and diastolic heart failure. The patient was diuresed adequately and was also seen by Dr. Lane, and had a kyphoplasty of L2 for her chronic back pain. However, she reports that for the past few days, she has been experiencing worsening of back pain and fatigue and also reports that she gets winded on mild exertion. She also reports that she has been increasing in weight. She reports that her weight a few weeks ago was 190 pounds; however, currently is 197 pounds. She denies any chest pain, abdominal pain, nausea, vomiting, urinary incontinence, motor and sensory loss. EMS was called and the patient was brought into the emergency department. While the temperature was taken by EMS, was noted to have a fever of 101. However, here in the emergency department, it is 99.9. The patient denies any productive cough, dysuria, fever, and chills. PAST MEDICAL HISTORY: 1. Nocturnal hypoxia. 2. CAD. 3. Atrial fibrillation now in normal sinus rhythm, not on anticoagulation, has been tried with anticoagulation, has been discontinued due to bleeding. 4. Obesity. 5. Hypertension. 6. Diastolic heart failure. 7. Chronic back pain. PATIENT'S NAME: JARETT GUZMAN [facility] AGE: 86 Y [address] ROOM: [place] [address] [place] [facility] [place]: 11/16/2016 History & Physical DISCHARGE DATE: FAMILY PHYSICIAN: ANALY AMBROCIO MD ATTENDING PHYSICIAN: Richard TRACEY PAST SURGICAL HISTORY: 1. CABG. 2. Hysterectomy. 3. Kyphoplasty. FAMILY HISTORY: Mother and brother has a history of coronary artery disease. SOCIAL HISTORY: Denies smoking, denies drinking, lives in assisted living, and has 3 children. MEDICATIONS: Currently being reconciled. REVIEW OF SYSTEMS: All systems have been reviewed and are negative except for what I mentioned in the HPI. PHYSICAL EXAMINATION: VITAL SIGNS: Temperature 99.9, blood pressure of 161/94, pulse of 84, respiratory rate 26, saturating 92% on 4 L. GENERAL APPEARANCE: The patient is alert and awake, lying on bed, in no acute distress. HEAD: Normocephalic, atraumatic. EYES: Extraocular muscles intact. NOSE: No nasal discharge. EARS: No ear discharge. MOUTH: Moist oral mucosa. CHEST: Bibasilar rales. No rales, rhonchi, or murmurs heard. HEART: Regular rate and rhythm. No murmurs, rubs, or gallops heard. NECK: Positive JVD. LOWER EXTREMITIES: Pitting edema. ABDOMEN: Soft, nontender, and nondistended. Bowel sounds present. INSPECTOR MULTIFOCAL LENS: Patient is alert and oriented x3. Motor and sensory grossly intact. MUSCULOSKELETAL: The patient has back pain on palpation of back. Negative straight leg raise test. No obvious joint effusion. LABORATORY DATA: Lactate 1, proBNP 2514. White blood cells of 8, hemoglobin 10.9, platelet of 205. Glucose of 98, BUN of 23, creatinine of 1.5, sodium of 137, potassium of 5. ESR 41. INR of 0.98. Procal of less than 0.05. Chest x-ray, left basilar consolidation similar to prior. ASSESSMENT AND PLAN: PATIENT'S NAME: JARETT GUZMAN [facility] AGE: 86 Y [address] ROOM: [place] [address] [place] [facility] [place]: 11/16/2016 History & Physical DISCHARGE DATE: FAMILY PHYSICIAN: ANALY AMBROCIO MD ATTENDING PHYSICIAN: Richard TRACEY 1. Acute on chronic hypoxic respiratory failure. The patient is an 86-year- old female with history of diastolic heart failure, who presents here with dyspnea on exertion and increased oxygen demand. The patient is not on oxygen at daytime, however, is requiring 4 L. On physical, the patient had bibasilar rales, pitting edema, and JVD. Chest x-ray somewhat unremarkable. Also, the patient has increase in weight of close to 7-9 pounds within few weeks. We will start the patient on Lasix 5 mg IV per hour drip. Daily weights, strict I's and O's, and start the patient on low-salt diet. We will follow the patient clinically. 2. Acute on chronic diastolic failure. See problem number one. We will acquire echo. 3. Chronic back pain, ongoing. No signs of cauda equina. The patient reports that she does not tolerate Percocet well. I will start the patient on [place]. Continue Valium for spasms and also will have lidocaine patch. 4. History of coronary artery disease, status post coronary artery bypass grafting. Continue aspirin and Lipitor. 5. Nocturnal hypoxia. Continue oxygen at night. 6. Morbid obesity, ongoing. 7. Acute on chronic kidney disease with chronic kidney disease of stage III with creatinine baseline, 1.1-0.9, now presenting with 1.5. Etiology most likely secondary to cardiorenal. We will treat underlying etiology. 8. Cardiorenal syndrome. We will treat underlying etiology. 9. Paroxysmal atrial fibrillation. Currently in normal sinus rhythm, on amiodarone. The patient has been tried on anticoagulation and was held because of bleeding and does not want any anticoagulation. 10. Deep vein thrombosis prophylaxis, heparin. 11. Physical deconditioning, PT/OT. 12. Fever. The fever was noted on the EMS temp, was 101. However, the patient does not have any signs of infection currently. White blood cell count is normal. Procal is within normal limits and UA is unremarkable. We will follow the patient clinically. Greater than 70 minutes was spent on patient care. Greater than 50% was spent on direct patient care and chart evaluation. Case was discussed also with Dr. Stahl. Assessment and plan was discussed with the patient and family. All questions were answered with satisfaction. We will admit the patient as inpatient for CHF. Code status discussed on admission, code status DNR/DNI. MD ADA SKINNER/lindsey PATIENT'S NAME: JARETT GUZMAN [facility] AGE: 86 Y [address] ROOM: [address] [address] [place] [facility] [place]: 11/16/2016 History & Physical DISCHARGE DATE: FAMILY PHYSICIAN: ANALY AMBROCIO MD ATTENDING PHYSICIAN: Richard TRACEY /[id number] D: 506 T: 550 HISTORY & PHYSICAL
--- NOTE | ~2016-11-16 | DS ---
PATIENT'S NAME: JARETT GUZMAN [facility] AGE: 86 Y [address] ROOM: [place] [address] [place] [facility] [place]: 11/16/2016 Discharge Summary DISCHARGE DATE: 11/20/2016 FAMILY PHYSICIAN: Raymond Ambrocio MD ATTENDING PHYSICIAN: Richard Banuelos ADMITTING DIAGNOSIS: Acute on chronic hypoxic respiratory failure. DISCHARGE DIAGNOSIS: Acute on chronic hypoxic respiratory failure secondary to decompensated chronic diastolic heart failure, resolved. SECONDARY DIAGNOSES: 1. Acute on chronic diastolic failure. 2. Chronic back pain. 3. History of coronary artery disease. 4. Nocturnal hypoxia. 5. Morbid obesity. 6. Acute on chronic kidney disease. 7. Cardiorenal syndrome. 8. Paroxysmal atrial fibrillation, not on anticoagulation due to history of bleeding. 9. Physical deconditioning. PROCEDURES: 1. Echocardiogram, which shows diastolic heart failure with increased pulmonary pressure. CONSULTATION: Dr. Lane, Orthopedics, for back pain. HISTORY OF PRESENT ILLNESS: The patient is an 86-year-old female with past medical history of CAD, status post CABG; chronic back pain; nocturnal hypoxia, presented here from an assisted living with worsening of back pain and dyspnea on exertion. The patient reports that she had a history of chronic back pain and was recently admitted to our hospital under Dr. Ambrocio and was admitted on the and discharged on the . She presented with swelling and diastolic heart failure. The patient was diuresed adequately and was also seen by Dr. Lane and had a kyphoplasty of L2 for her chronic pain. However, she reports that for the past few days she has been experiencing worsening of back pain and fatigue, also reports that she gets winded on mild exertion. She also reports that she has been increasing in weight. She reports that her weight few weeks ago was 190 pounds, however, now it is currently 197. She denies any chest pain, abdominal pain, nausea, vomiting, urinary incontinence, motor and sensory loss. EMS was called, and the patient was brought into the emergency department. While en route via EMS, temperature was noted to be elevated at 101, however in the emergency PATIENT'S NAME: JARETT GUZMAN [facility] AGE: 86 Y [address] ROOM: [place] [address] [place] [facility] [place] DATE: 11/16/2016 Discharge Summary DISCHARGE DATE: 11/20/2016 FAMILY PHYSICIAN: Raymond Ambrocio MD ATTENDING PHYSICIAN: Richard Banuelos department, temperature was 99.9. HOSPITAL COURSE: The patient was on 4 L on initial examination. Of note, the patient did not use oxygen during daytime, but uses for nocturnal hypoxia of 2 L. Chest x-ray shows some vascular congestion and pleural effusions. On physical examination, the patient had JVD, rales, swelling, and edema. The patient was started on Lasix drip with adequate diuresis. The patient continued to be on Lasix drip for 2 days with improvement of acute on chronic hypoxic respiratory failure. The patient was taken off oxygen. The patient also had an echocardiogram just to revaluate her CHF, as she had echocardiogram longtime ago. The echo showed an ejection fraction of 50% with pulmonary hypertension and right-sided ventricular strain. The patient was also seen by Physical Therapy and had occupational therapy during stay and recommended acute rehabilitation. The patient was also seen by Dr. Lane for chronic back pain and has had kyphoplasty. There is no additional surgical necessity that was needed. The patient was treated with Lidoderm patch and pain control with [place], with some improvement. The patient to be discharged to longterm facility. Increased the patient's Lasix to 40 mg b.i.d. and had fluid restriction of 2 L in 24 hours and daily weight. The patient also on discharge to be scheduled to be seen by a pain specialist for her chronic back pain. CONDITION: Stable. DISPOSITION: detention facility. DISCHARGE MEDICATIONS: Please see MAR. DISCHARGE INSTRUCTIONS: No pending study, but repeat CMS and magnesium on 11/24/2016 and followup by primary care physician, Dr. Ambrocio. Follow up with the house physician at longterm [facility] and Dr. Ambrocio. PHYSICAL EXAMINATION: VITAL SIGNS: Stable. CHEST: Clear to auscultation bilaterally. HEART: Regular rate and rhythm. No murmurs, rubs, or gallops. ABDOMEN: Soft, nontender, and nondistended. Bowel sounds present. ROLL CUTTER: The patient is alert and oriented x3. Motor and sensory grossly intact. No cauda equina sign. Greater than 30 minutes was spent on discharge planning. PATIENT'S NAME: JARETT GUZMAN [facility] AGE: 86 Y [address] ROOM: [address] [address] [place] [facility] [place] DATE: 11/16/2016 Discharge Summary DISCHARGE DATE: 11/20/2016 FAMILY PHYSICIAN: Raymond Ambrocio MD ATTENDING PHYSICIAN: Richard Banuelos MD ADA SKINNER/lindsey /[id number] d: 11/21/16 0338 t: 11/29/16 1552, DISCHARGE SUMMARY
--- NOTE | ~2016-11-16 | ER ---
PATIENT'S NAME: JARETT GUZMAN [facility] AGE: 86 Y [address] ROOM: [place] [address] [place]ATION: [facility] [place] DATE: 11/16/2016 ER/Outpatient Report DISCHARGE DATE: FAMILY PHYSICIAN: ANALY AMBROCIO MD ATTENDING PHYSICIAN: Richard BANUELOS CHIEF COMPLAINT: Back pain and difficulty breathing. HISTORY OF PRESENT ILLNESS: Ms. Guzman presents for the above chief complaint by ambulance. She was febrile this morning. She is requiring some oxygen. She has severe uncontrolled back pain which has been present for months. She was recently hospitalized for swelling in her legs and had extensive rule out of pathology at that time and had some changes to her medications. She was discharged and has not had any improvement recently from that. She did have a kyphoplasty by Dr. Lane, orthopedic surgeon, at the end of September, and it seems as though that has helped her overall. She had a reaction to fentanyl in the past with a fentanyl patch. PAST MEDICAL HISTORY: Documented on the record and reviewed by me. SOCIAL HISTORY: Documented on the record and reviewed by me. MEDICATIONS: Documented on the record and reviewed by me. ALLERGIES: DOCUMENTED ON THE RECORD AND REVIEWED BY ME. REVIEW OF SYSTEMS: Review of systems was performed and negative except as noted in the HPI. PHYSICAL EXAMINATION: VITAL SIGNS: Obtained for this patient encounter, they are as follows: Blood pressure is 161/94, pulse is 89, respiratory rate is 26, temp is 99.9, SpO2 is 91% on 4 L nasal cannula. Pain is rated at 8/10. GENERAL: An age-appropriate, elderly, frail-appearing female, in obvious pain and distress with stridorous breathing. NEUROLOGIC: The patient is awake, she is alert. GCS is 14. Slightly confused but overall appropriate. She is able to move all extremities. There is no asymmetry. HEENT: Normocephalic, atraumatic. Eyes are PERRL. Oropharynx is clear. PATIENT'S NAME: JARETT GUZMAN [facility] AGE: 86 Y [address] ROOM: [place] [address] LOCATION: [facility] [place] DATE: 11/16/2016 ER/Outpatient Report DISCHARGE DATE: FAMILY PHYSICIAN: ANALY AMBROCIO MD ATTENDING PHYSICIAN: Richard BANUELOS NECK: Supple. No stridor. Trachea is midline. CHEST: Heart is regular rate and rhythm with no obvious murmurs. LUNGS: Clear to auscultation in all lung hager except possibly at the bases where there may be a slight crackle. BACK: Normal to inspection and palpation. EXTREMITIES: Warm and well perfused with marked edema of the bilateral lower extremities, right worse than left, and there is no skin breakdown. On re-evaluation, the patient had complete resolution of all stridor which was only dependent upon her degree of relaxation. She was able to control it without difficulty upon our request. LABORATORY DATA AND X-RAYS: Chest x-ray revealed overall stable findings with no obvious pulmonary edema or infiltrates. Urinalysis was obtained with no evidence of infection. ProBNP is 2514. Procalcitonin is undetectable. CBC with a white count of 8, hemoglobin of 10.9, platelets of 205. INR is 1. CMS with no electrolyte abnormalities. Renal function, creatinine is 1.5, GFR is 31, which are marked changes from her baseline of less than 1. CRP is elevated at 3.84. ESR is down to 41. Serum lactate is 1.0. EKG is sinus rhythm with a ventricular rate of 90, with otherwise normal intervals and axis. IMPRESSION: Acute kidney injury of unclear etiology in the setting of hypoxia of unclear etiology, likely secondary to heart failure, and overall fluid management. EMERGENCY DEPARTMENT COURSE: The patient was seen and evaluated. She was given 2 Xopenex with marked improvement in her subjective symptoms. Objectively, there is no significant change. She was placed on 6 L non-rebreather face mask and stabilized and was transitioned to 3-4 L by nasal cannula and saturating in the low to mid 90s at that time, when she was awake, in the upper 80s while sleeping. She does wear oxygen at night but not routinely while awake. I discussed the case with the patient's primary care physician, Dr. Ambrocio. He has elected to have the hospitalist admit the patient which is appropriate given her acute kidney injury. All questions were answered and the patient was admitted to Dr. Banuelos for further evaluation and treatment of this patient's multiple medical conditions. MD GRACIA RANGEL/lindsey PATIENT'S NAME: JARETT GUZMAN [facility] AGE: 86 Y [address] ROOM: [address] [address] LOCATION: [facility] [place] DATE: 11/16/2016 ER/Outpatient Report DISCHARGE DATE: FAMILY PHYSICIAN: ANALY AMBROCIO MD ATTENDING PHYSICIAN: Richard BANUELOS /[id number] d: 11/16/16 1702 t: 11/25/16 0622, OUTPATIENT REPORT
--- NOTE | ~2016-11-16 | ECHO ---
Transthoracic Echocardiography Report (TTE) Demographics Patient Name JARETT GUZMAN Date of Study 11/16/2016 Patient Number [id number] Visit Number [id number] Date of 1930 Room Number G3203 Gender Female Number Age 86 year(s) Referring [address] Advisor Edilia George RDADEN, Physician MD RVT, RDMS, ASSOCIATE PROFESSOR OF MUSICOLOGY Physician Interpreting Domingo Johns MD Deputy Chief Magistrate Physician Supervising Ordering Vin Ramos MD/MLP Physician Nurse Stress Hot Blast Worker Conclusions Contractility Score Summary Normal Left Ventricular contractility was noted. Summary The estimated left ventricular ejection fraction is 55-60%. Paradoxical septal motion secondary to cardiac surgery and right ventricular volume / pressure overload pattern. Moderate to severe biatrial enlargement. Moderate concentric left ventricular hypertrophy. Moderately dilated right ventricle. Low normal to mildly depressed right ventricular systolic function. Moderate mitral annular calcification. Mild calcification of the mitral valve. Mild mitral regurgitation by color Doppler. The aortic valve is moderately sclerotic. There is mild aortic regurgitation by color Doppler. Moderate tricuspid regurgitation by color Doppler. There is moderate pulmonary hypertension. The pulmonary pressure (RVSP) is 45 mmHg. Trivial posterior pericardial effusion. There is no echocardiographic evidence of cardiac tamponade. The ascending aorta appears mildly dilated. The maximum diameter measures 3.7 cm. Suboptimal subcostal window to evaluate the IVC and interatrial septum. Left pleural effusion noted. Procedure Type of Study TTE procedure:2D Echocardiogram, M-Mode, Doppler , Color Doppler. Procedure Date Date: 11/16/2016 Start: 03:12 PM Study Location: Inpatient Portable Technical Quality: Limited visualization due to lung interference. Additional Indications:CHF, Chest Pain Appropriate Use Criteria: 9 Patient Status: CRYSTAL Rhythm: NSR HR: 68 bpm BP: 135/82 mmHg M-Mode/2D Measurements LV Diastolic Dimension: 4.58 cm LV Systolic Dimension: 2.69 cm LV Septum Diastolic: 1.42 cm LV PW Diastolic: 1.41 cm AO Root Dimension: 3.1 cm Cardiac Output: 4.21 l/min AV Cusp Separation: 2.1 cm RV Diastolic Dimension: 4.21 cm LA volume: 74 ml LVOT: 2 cm RV Base: 4.6 cm LVOT VTI: 19.7 cm RV Mid: 4.4 cm LV Stroke volume: 61.86 ml TAPSE: 1.7 cm TDI-S': 9.6 cm/s Doppler Measurements AV Peak Velocity: 1.55 m/s MV Peak E-Wave: 0.71 m/s AV Peak Gradient: 9.61 mmHg MV Peak A-Wave: 0.96 m/s AV Mean Gradient: 6 mmHg MV E/A Ratio: 0.74 LVOT Peak Velocity: 0.82 m/s MV P1/2t: 101 msec AV P1/2t: 916 msec TR Gradient:36.48 mmHg PV Peak Velocity: 0.9 m/s Estimated RAP:8 mmHg PV Peak Gradient: 3.2 mmHg Estimated RVSP: 44 mmHg Estimated PASP: 44.48 mmHg E' Septal Velocity: 0.04 m/s A' Septal Velocity: 0.04 m/s E' Lateral Velocity: 0.09 m/s A' Lateral Velocity: 0.11 m/s Findings Left Ventricle The left ventricle is normal in size . Moderate concentric left ventricular hypertrophy. Diastolic assessment reveals Grade I diastolic dysfunction. Paradoxical septal motion secondary to cardiac surgery and right ventricular volume / pressure overload pattern. Normal left ventricular systolic function. Right Ventricle Moderately dilated right ventricle. Low normal to mildly depressed right ventricular systolic function. Left Atrium The left atrium is moderately to severely dilated. Right Atrium The right atrium is moderate to severely dilated. Mitral Valve Moderate mitral annular calcification. Mild calcification of the mitral valve. Mild mitral regurgitation by color Doppler. Aortic Valve The aortic valve is moderately sclerotic. There is mild aortic regurgitation by color Doppler. Tricuspid Valve Moderate tricuspid regurgitation by color Doppler. There is moderate pulmonary hypertension. The pulmonary pressure (RVSP) is 45 mmHg. Pulmonic Valve Trivial pulmonic valve regurgitation by color Doppler. Pericardial Effusion Trivial posterior pericardial effusion. There is no echocardiographic evidence of cardiac tamponade. Miscellaneous The ascending aorta appears mildly dilated. The maximum diameter measures 3.7 cm. Suboptimal subcostal window to evaluate the IVC and interatrial septum. Pleural Effusion Left pleural effusion noted. Signature dtt: Andreas Lane (cardio) dtd: 11/16/16 1512 Physician Self Edit
[~2016-11-16 07:34] MED LIST changes: -ARTIFICIAL TEAR15 ML OPHTH; -BUTRANS1 EAC1 TOP; -CITRACAL950 MG PO; -FISH OIL 1,0001 EACH PO; -I-CAPS WITH LU1 EACH PO; -PERCOCET 10-321 EACH PO; -SLOW-MAG (64 MG1 TAB PO; -SYSTANE 0.3-0.1 EACH OPHTH; -ZOFRAN8 MG PO; -[UNRECOGNIZED DRUG - OTHER] PO
[2016-11-16 08:07] LABS: HEMATOCRIT 33.4 % (30.0-46.0); HEMOGLOBIN 10.9 g/dL (10.0-15.0); MCHC 32.6 gm/dL (32.0-36.5); MCV 97.9 fl (83.0-98.0); MPV 10.5 fl (9.4-12.4); PLATELET COUNT 205 K/uL (150-450); RBC 3.41 M/uL (3.00-5.00); RDW-CV 14.7 % (11.9-14.6)
[2016-11-16 08:16] LABS: INR - (THERAPEUTIC) 0.98 (0.92-1.07); PROTIME 10.3 SECONDS (9.8-11.4); PTT 27 SECONDS (25-32)
[2016-11-16 08:23] LABS: ALBUMIN 3.2 gm/dL (3.5-5.0); CALCIUM 8.1 mg/dL (8.5-10.5); CREATININE 1.5 mg/dL (0.5-1.1); TOTAL PROTEIN 6.5 g/dL (6.0-8.4)
[2016-11-16 08:25] LABS: TOTAL BILIRUBIN 0.6 mg/dL (0.0-1.5)
[2016-11-16 08:51] LABS: BILIRUBIN URINE NEGATIVE (NEGATIVE); BLOOD URINE 10 /UL (NEGATIVE); COLOR URINE YELLOW (YELLOW); GLUCOSE URINE NEGATIVE (NEGATIVE); KETONE URINE NEGATIVE (NEGATIVE); LEUKOCYTES URINE NEGATIVE /UL (NEGATIVE); NITRITE URINE NEGATIVE (NEGATIVE); PROTEIN URINE NEGATIVE (NEGATIVE); TURBIDITY URINE CLEAR (CLEAR); UROBILINOGEN URINE NORMAL (NORMAL)
[2016-11-16 08:56] LABS: BANDED NEUTROPHIL # 0.1 K/uL (0.0-0.1); BANDED NEUTROPHILS % 1 %; LYMPHOCYTE # 0.6 K/uL (0.8-4.0); LYMPHOCYTE % 7 %; MONOCYTE # 0.1 K/uL (0.0-1.0); SEGMENTED NEUTROPHIL % 87 %
[2016-11-16 08:59] LABS: BACTERIA URINE FEW (NEGATIVE); EPITHELIAL URINE 0-2 #/HPF (NEGATIVE); MUCUS URINE 2+ (NEGATIVE); RBC URINE 0-2 #/HPF (NEGATIVE); WBC URINE 0-2 #/HPF (NEGATIVE)
[2016-11-16] MEDS ORDERED: CITRACAL950 MG PO (11:23)
[2016-11-16] MEDS ORDERED: NIFEREX-150) (150 MG PO (11:27)
[2016-11-16] MEDS ORDERED: I-CAPS WITH LU1 EACH PO (11:28)
[2016-11-16] MEDS ORDERED: SLOW-MAG (64 MG1 TAB PO (11:29)
[2016-11-16] MEDS ORDERED: ARTIFICIAL TEAR15 ML OPHTH (11:33)
[2016-11-16] MEDS ORDERED: [UNRECOGNIZED DRUG - OTHER] PO (11:37)
[2016-11-16] MEDS ORDERED: FISH OIL 1,0001 EACH PO (11:43)
[2016-11-16] MEDS ORDERED: BUTRANS1 EAC1 TOP (11:45)
[2016-11-16] MEDS ORDERED: NORCO 10-325 T1 EACH PO (11:49)
[2016-11-16] MEDS ORDERED: ZOFRAN8 MG PO (11:58)
[2016-11-16] MEDS ORDERED: PERCOCET 10-321 EACH PO (12:00)
[2016-11-16] MEDS ORDERED: LASIX40 MG PO (12:06)
[2016-11-16] MEDS ORDERED: SYSTANE 0.3-0.1 EACH OPHTH (12:07)
[2016-11-17 04:21] LABS: BASOPHIL % 0.7 %; EOSINOPHIL # 0.4 K/uL (0.0-0.5); EOSINOPHIL % 6.7 %; HEMATOCRIT 31.5 % (30.0-46.0); HEMOGLOBIN 10.3 g/dL (10.0-15.0); IMMATURE GRANULOCYTE % 0.2 %; LYMPHOCYTE % 18.4 %; MCH 31.6 pg (27.0-34.0); MCHC 32.7 gm/dL (32.0-36.5); MCV 96.6 fl (83.0-98.0); MONOCYTE # 0.7 K/uL (0.0-1.0); MONOCYTE % 12.8 %; MPV 10.5 fl (9.4-12.4); NEUTROPHIL # (ANC) 3.3 K/uL (1.8-7.8); NEUTROPHIL % 61.2 %; NRBC % 0 /100WBC (0-0.00); PLATELET COUNT 169 K/uL (150-450); RBC 3.26 M/uL (3.00-5.00); RDW-CV 14.6 % (11.9-14.6); WBC 5.4 K/uL (4.0-11.0)
[2016-11-17 04:44] LABS: ALBUMIN 2.8 gm/dL (3.5-5.0); ANION GAP 9.9 (10.0-19.0); CALCIUM 7.7 mg/dL (8.5-10.5); CREATININE 1.2 mg/dL (0.5-1.1); POTASSIUM 3.9 mMol/L (3.7-5.1); TOTAL BILIRUBIN 0.3 mg/dL (0.0-1.5); TOTAL PROTEIN 5.9 g/dL (6.0-8.4)
[2016-11-18 04:51] LABS: BASOPHIL % 0.5 %; EOSINOPHIL # 0.3 K/uL (0.0-0.5); EOSINOPHIL % 4.8 %; HEMOGLOBIN 11.4 g/dL (10.0-15.0); IMMATURE GRANULOCYTE % 0.3 %; LYMPHOCYTE # 1.1 K/uL (0.8-4.0); LYMPHOCYTE % 17.8 %; MCH 31.8 pg (27.0-34.0); MCHC 33.5 gm/dL (32.0-36.5); MCV 94.7 fl (83.0-98.0); MONOCYTE # 0.6 K/uL (0.0-1.0); MONOCYTE % 10.1 %; MPV 10.3 fl (9.4-12.4); NEUTROPHIL # (ANC) 4.2 K/uL (1.8-7.8); NEUTROPHIL % 66.5 %; NRBC % 0 /100WBC (0-0.00); PLATELET COUNT 194 K/uL (150-450); RBC 3.59 M/uL (3.00-5.00); WBC 6.2 K/uL (4.0-11.0)
[2016-11-18 05:11] LABS: CREATININE 1.2 mg/dL (0.5-1.1); POTASSIUM 3.7 mMol/L (3.7-5.1); TOTAL PROTEIN 6.4 g/dL (6.0-8.4)
[2016-11-18 05:12] LABS: ANION GAP 6.7 (10.0-19.0); TOTAL BILIRUBIN 0.6 mg/dL (0.0-1.5)
[2016-11-19 04:29] LABS: BASOPHIL % 0.5 %; EOSINOPHIL # 0.3 K/uL (0.0-0.5); EOSINOPHIL % 5.5 %; HEMATOCRIT 32.4 % (30.0-46.0); HEMOGLOBIN 10.8 g/dL (10.0-15.0); IMMATURE GRANULOCYTE % 0.2 %; MCH 31.6 pg (27.0-34.0); MCHC 33.3 gm/dL (32.0-36.5); MCV 94.7 fl (83.0-98.0); MONOCYTE # 0.7 K/uL (0.0-1.0); MONOCYTE % 11.8 %; MPV 10.3 fl (9.4-12.4); NEUTROPHIL # (ANC) 3.6 K/uL (1.8-7.8); NRBC % 0 /100WBC (0-0.00); PLATELET COUNT 195 K/uL (150-450); RBC 3.42 M/uL (3.00-5.00); RDW-CV 14.2 % (11.9-14.6); WBC 5.7 K/uL (4.0-11.0)
[2016-11-19 04:47] LABS: ALBUMIN 2.9 gm/dL (3.5-5.0); ANION GAP 8.8 (10.0-19.0); CALCIUM 8.3 mg/dL (8.5-10.5); CREATININE 1.2 mg/dL (0.5-1.1); POTASSIUM 3.8 mMol/L (3.7-5.1); TOTAL PROTEIN 6.1 g/dL (6.0-8.4)
[2016-11-19 04:48] LABS: TOTAL BILIRUBIN 0.4 mg/dL (0.0-1.5)
[2016-11-20 05:02] LABS: BASOPHIL % 0.8 %; EOSINOPHIL # 0.3 K/uL (0.0-0.5); EOSINOPHIL % 5.5 %; HEMATOCRIT 32.6 % (30.0-46.0); HEMOGLOBIN 10.5 g/dL (10.0-15.0); IMMATURE GRANULOCYTE % 0.2 %; LYMPHOCYTE # 0.9 K/uL (0.8-4.0); LYMPHOCYTE % 18.4 %; MCH 30.6 pg (27.0-34.0); MCHC 32.2 gm/dL (32.0-36.5); MONOCYTE # 0.5 K/uL (0.0-1.0); MPV 10.2 fl (9.4-12.4); NEUTROPHIL # (ANC) 3.2 K/uL (1.8-7.8); NEUTROPHIL % 65.1 %; NRBC % 0 /100WBC (0-0.00); PLATELET COUNT 211 K/uL (150-450); RBC 3.43 M/uL (3.00-5.00); RDW-CV 14.4 % (11.9-14.6); WBC 4.9 K/uL (4.0-11.0)
[2016-11-20 05:18] LABS: ALBUMIN 2.9 gm/dL (3.5-5.0); ANION GAP 9.7 (10.0-19.0); CALCIUM 8.2 mg/dL (8.5-10.5); CREATININE 1.1 mg/dL (0.5-1.1); POTASSIUM 3.7 mMol/L (3.7-5.1); TOTAL BILIRUBIN 0.4 mg/dL (0.0-1.5); TOTAL PROTEIN 6.1 g/dL (6.0-8.4)
== END 2016-11-20 10:21 | DRG 291 ==
LOC: GMED 07:34 → GMSU 10:44
PROVIDERS: Emergency Medicine; ADMIT Internal Medicine
DX: I13.0 Hypertensive heart and chronic kidney disease with heart failure and stage 1 through stage 4 chronic kidney disease, or unspecified chronic kidney disease (principal); J96.21 Acute and chronic respiratory failure with hypoxia; N17.9 Acute kidney failure, unspecified; I27.2 Other secondary pulmonary hypertension; E66.01 Morbid (severe) obesity due to excess calories; G47.34 Idiopathic sleep related nonobstructive alveolar hypoventilation; I50.33 Acute on chronic diastolic (congestive) heart failure; I48.0 Paroxysmal atrial fibrillation; N18.3 Chronic kidney disease, stage 3 (moderate); I25.10 Atherosclerotic heart disease of native coronary artery without angina pectoris; Z66 Do not resuscitate; G89.29 Other chronic pain; M54.5 Low back pain; Z68.30 Body mass index [BMI] 30.0-30.9, adult; Z95.1 Presence of aortocoronary bypass graft; Z79.82 Long term (current) use of aspirin; Z82.49 Family history of ischemic heart disease and other diseases of the circulatory system; Z79.899 Other long term (current) drug therapy
CPT/HCPCS: J1644; J1940; J7040; J7050

== ENCOUNTER → 2016-11-16 | Outpatient (CLI) | payer MEDICARE, OTHER ==
[~2016-11-16] MED LIST changes: +ARTIFICIAL TEAR15 ML OPHTH; +BUTRANS1 EAC1 TOP; +CITRACAL950 MG PO; +FISH OIL 1,0001 EACH PO; +I-CAPS WITH LU1 EACH PO; +PERCOCET 10-321 EACH PO; +PROTONIX40 MG PO; +SLOW-MAG (64 MG1 TAB PO; +SPIRONOLACTONE25 MG PO; +SYSTANE 0.3-0.1 EACH OPHTH; +ZOFRAN8 MG PO; +[UNRECOGNIZED DRUG - OTHER] PO
== END | disposition disaster alternative care site (69) ==
LOC: GAMB 07:23
DX: M54.9 Dorsalgia, unspecified (principal); R39.15 Urgency of urination; Z79.82 Long term (current) use of aspirin; Z79.891 Long term (current) use of opiate analgesic; Z79.899 Other long term (current) drug therapy; Z88.1 Allergy status to other antibiotic agents; Z88.8 Allergy status to other drugs, medicaments and biological substances
CPT/HCPCS: A0422; A0425; A0427; J2270; J7030

== ENCOUNTER → 2016-11-24 | Outpatient (CLI) | payer MEDICARE, OTHER ==
[~2016-11-24] MED LIST changes: +ARTIFICIAL TEAR15 ML OPHTH; +BUTRANS1 EAC1 TOP; +CITRACAL950 MG PO; +FISH OIL 1,0001 EACH PO; +I-CAPS WITH LU1 EACH PO; +PERCOCET 10-321 EACH PO; +SLOW-MAG (64 MG1 TAB PO; +SYSTANE 0.3-0.1 EACH OPHTH; +ZOFRAN8 MG PO; +[UNRECOGNIZED DRUG - OTHER] PO
== END | disposition disaster alternative care site (69) ==
LOC: GRAD 12:30
DX: Z47.89 Encounter for other orthopedic aftercare (principal); M41.9 Scoliosis, unspecified; M43.06 Spondylolysis, lumbar region; M81.8 Other osteoporosis without current pathological fracture

== ENCOUNTER 2016-12-08 15:24 | Emergency (ER) | payer MEDICARE, OTHER ==
--- NOTE | ~2016-12-08 | ER ---
PATIENT'S NAME: JARETT GUZMAN [facility] AGE: 86 Y [address] ROOM: [place] [address] LOCATION: [facility] ADMIT DATE: 12/08/2016 ER/Outpatient Report DISCHARGE DATE: 12/08/2016 FAMILY PHYSICIAN: Raymond Ambrocio MD ATTENDING PHYSICIAN: Harsha Stahl TIME SEEN: 1535. CHIEF COMPLAINT: Left lower quadrant pain. HISTORY OF PRESENT ILLNESS: The patient is an 86-year-old female, patient of Dr. Ambrocio, the patient was sent over by Dr. Ambrocio, with complaint of severe left lower quadrant pain. The patient has recently been put on high doses of narcotics because of chronic back pain. The patient has seen a pain specialist. The patient describes her pain as sharp, stabbing. ALLERGIES: CLINDAMYCIN. CURRENT MEDICATIONS: See her copied list which was reviewed. She is on several medications. PAST MEDICAL HISTORY: Includes COPD, hypertension, history of atrial fibrillation, chronic back pain, coronary artery disease, previous MD. The patient states she was treated for diverticulitis years ago. SURGERIES: She has had a tonsillectomy, hysterectomy, and CABG. SOCIAL HISTORY: Nonsmoker. No alcohol. The patient resides at [facility]. REVIEW OF SYSTEMS: Obtained from the patient. HEENT: No recent headaches, visual changes, or sore throat. RESPIRATORY: She does get short of breath with exertion. CARDIOVASCULAR: Denies any chest pain. GASTROINTESTINAL: Includes left lower quadrant pain. The patient's last bowel movement was yesterday but small amount. She denies vomiting today. GENITOURINARY: No dysuria. MUSCULOSKELETAL: Includes chronic severe back pain requiring opiates, pain PATIENT'S NAME: JARETT GUZMAN [facility] AGE: 86 Y [address] ROOM: [place], [place] [address] LOCATION: [facility] ADMIT DATE: 12/08/2016 ER/Outpatient Report DISCHARGE DATE: 12/08/2016 FAMILY PHYSICIAN: Raymond Ambrocio MD ATTENDING PHYSICIAN: Harsha Stahl specialist. PHYSICAL EXAMINATION: VITAL SIGNS: Blood pressure was 164/72, her temperature was 97.3, her respiratory rate 22, pulse 74, and O2 sats 92%. GENERAL APPEARANCE: Elderly female. She was oriented times. She looks stressed. HEAD: Normocephalic. No temporal wasting. EYES: PERRLA. No icterus. NOSE: Septum midline. MOUTH: Oral membranes were moist. LUNGS: Peripherally were clear. HEART: Tones distant, sounded regular. ABDOMEN: Fairly localized tenderness in left lower quadrant. No palpable masses were noted. Bowel sounds were decreased. RECTAL: Sphincter tone appeared adequate. There was just some soft stool present in the rectum. LABORATORY DATA AND X-RAYS: Her urine was yellow clear, few leukocytes present. CBC: White count 6.9, her hemoglobin 11.3. ANC was at 5.0. Lactate was 1.7. Procalcitonin was 0.07. CMS; creatinine slightly elevated at 1.4. Her GFR was 34. CT abdomen and pelvis without contrast Radiology reported no diverticulitis, large amount of stool present, constipation. ASSESSMENT: 1. Opioid-induced constipation. 2. Hypertension. 3. Chronic back pain. 4. History of atrial fibrillation. 5. Coronary artery disease. PLAN: I did talk to Dr. Ambrocio concerning our findings he suggests the patient could go back to [facility]. He recommended to continue her home medicines and start probiotics for the constipation. Follow up in the next couple of days if not improving. GARCÍA GARCIA FOR MD CASSANDRA RANGEL/lindsey PATIENT'S NAME: JARETT GUZMAN [facility] AGE: 86 Y [address] ROOM: [place] [address] LOCATION: [facility] ADMIT DATE: 12/08/2016 ER/Outpatient Report DISCHARGE DATE: 12/08/2016 FAMILY PHYSICIAN: Raymond Ambrocio MD ATTENDING PHYSICIAN: Harsha Stahl /[id number] d: t: 12/09/16 0035, OUTPATIENT REPORT
[2016-12-08 15:59] LABS: BASOPHIL % 0.6 %; EOSINOPHIL # 0.2 K/uL (0.0-0.5); EOSINOPHIL % 2.3 %; HEMATOCRIT 35.1 % (30.0-46.0); HEMOGLOBIN 11.3 g/dL (10.0-15.0); IMMATURE GRANULOCYTE % 0.3 %; LYMPHOCYTE % 14.7 %; MCH 30.4 pg (27.0-34.0); MCHC 32.2 gm/dL (32.0-36.5); MCV 94.4 fl (83.0-98.0); MONOCYTE # 0.6 K/uL (0.0-1.0); MONOCYTE % 9.3 %; NEUTROPHIL % 72.8 %; NRBC % 0 /100WBC (0-0.00); PLATELET COUNT 249 K/uL (150-450); RBC 3.72 M/uL (3.00-5.00); RDW-CV 14.3 % (11.9-14.6); WBC 6.9 K/uL (4.0-11.0)
[2016-12-08 16:17] LABS: ALBUMIN 3.2 gm/dL (3.5-5.0); ANION GAP 11.1 (10.0-19.0); CALCIUM 8.6 mg/dL (8.5-10.5); CREATININE 1.4 mg/dL (0.5-1.1); POTASSIUM 4.1 mMol/L (3.7-5.1); TOTAL BILIRUBIN 0.6 mg/dL (0.0-1.5); TOTAL PROTEIN 6.9 g/dL (6.0-8.4)
[2016-12-08 16:19] LABS: BILIRUBIN URINE NEGATIVE (NEGATIVE); BLOOD URINE NEGATIVE /UL (NEGATIVE); COLOR URINE YELLOW (YELLOW); GLUCOSE URINE NEGATIVE (NEGATIVE); KETONE URINE NEGATIVE (NEGATIVE); LEUKOCYTES URINE 25 /UL (NEGATIVE); NITRITE URINE NEGATIVE (NEGATIVE); PROTEIN URINE NEGATIVE (NEGATIVE); TURBIDITY URINE CLEAR (CLEAR); UROBILINOGEN URINE NORMAL (NORMAL)
[2016-12-08 16:25] LABS: EPITHELIAL URINE 0-2 #/HPF (NEGATIVE); RBC URINE 0-2 #/HPF (NEGATIVE)
[2016-12-08 16:26] LABS: BACTERIA URINE NEGATIVE (NEGATIVE)
== END 2016-12-08 17:42 | disposition disaster alternative care site (69) ==
LOC: GMED 15:24
PROVIDERS: Emergency Medicine
DX: K59.00 Constipation, unspecified (principal); F11.988 Opioid use, unspecified with other opioid-induced disorder; J44.9 Chronic obstructive pulmonary disease, unspecified; I10 Essential (primary) hypertension; I48.91 Unspecified atrial fibrillation; G89.29 Other chronic pain; M54.9 Dorsalgia, unspecified; I25.10 Atherosclerotic heart disease of native coronary artery without angina pectoris; I25.2 Old myocardial infarction; Z79.899 Other long term (current) drug therapy; Z90.710 Acquired absence of both cervix and uterus; Z90.89 Acquired absence of other organs; Z95.1 Presence of aortocoronary bypass graft; Z79.01 Long term (current) use of anticoagulants; Z88.1 Allergy status to other antibiotic agents
CPT/HCPCS: J2405; J3010; J7030